=== PATIENT | female | born 1980 | race Caucasian/White ===

== ENCOUNTER 2019-11-25 10:31 | Outpatient (REF) | payer BC, SELFPAY | END 2019-11-25 10:32 | disposition home or self-care (01) | LOC: HO.HMGCLDS 10:31 | PROVIDERS: PCP Internal Medicine; Visit Provider Internal Medicine | DX: Z20.828 Contact with and (suspected) exposure to other viral communicable diseases (principal) | CPT/HCPCS: 36415; 87635 ==

== ENCOUNTER 2020-08-28 15:59 | Outpatient (REF) | payer BC, OTHER, SELFPAY ==
--- NOTE | ~2020-08-28 | MM_ITS ---
EXAMINATION: MM SCREENING DIGITAL BREAST TOMOSYNTHESIS, BILATERAL CLINICAL INFORMATION: Screening. Asymptomatic. The lifetime risk of breast cancer based on the Tyrer-Cuzick Model is 22.6%. Additional annual screening with breast MRI may be of benefit in women with a Score of 20% or greater. COMPARISON: Mammography: 08/23/2019 and studies dating back to 05/04/2015 TECHNIQUE: Digital breast tomosynthesis is performed in both the craniocaudal and mediolateral oblique views along with computer-aided detection (CAD). Synthesized 2-D images are generated from the tomosynthesis. FINDINGS: The breasts are heterogeneously dense, which may obscure small masses (ACR BI-RADS breast composition Category c). There is a stable parenchymal pattern of the right breast without new abnormal dominant mass or suspicious grouping of microcalcifications. Within the upper outer aspect of the left breast approximately 5 cm from the nipple, there is a region of density for which additional films consisting of rolled craniocaudal views are suggested. MM/MM tomosynthesis screening BI IMPRESSION: Question left breast density upper outer aspect for further evaluation. ASSESSMENT: BI-RADS 0: Incomplete - Need Additional Imaging Evaluation. RECOMMENDATION: 1. Additional views of the left breast in rolled craniocaudal views. 2. Targeted ultrasound if warranted after review of the additional views. 3. Radiology department staff will contact the patient for additional imaging. This patient's information was entered into a reminder system with a target due date for their next mammogram.
== END 2020-08-28 16:00 | disposition home or self-care (01) ==
LOC: HO.MAMMO 15:59
PROVIDERS: PCP Internal Medicine; Visit Provider Internal Medicine
DX: Z12.31 Encounter for screening mammogram for malignant neoplasm of breast (principal)
CPT/HCPCS: 77063; 77067

== ENCOUNTER 2020-09-04 08:01 | Outpatient (REF) | payer BC, SELFPAY ==
--- NOTE | ~2020-09-04 | MM_ITS ---
EXAMINATION: MM DIAGNOSTIC DIGITAL BREAST TOMOSYNTHESIS, LEFT US DIAGNOSTIC ULTRASOUND BREAST, LEFT CLINICAL INFORMATION: Recall from screening for question of asymmetric density upper outer left breast. TC 23%. COMPARISON: Mammography: 08/28/2020, 08/23/2019, 06/16/2018 TECHNIQUE: Digital breast tomosynthesis is performed. 2D images are generated from the tomosynthesis. The following views are obtained: 3-D rolled CC x2, 3-D spot CC, 3-D spot MLO, 3-D spot ML. Ultrasound left breast is targeted to the outer quadrant. Grayscale imaging and color Doppler are performed without and with harmonics. FINDINGS: The breasts are heterogeneously dense, which may obscure small masses (ACR BI-RADS breast composition Category c). The additional views show no persistent asymmetric density. There is no developing density from prior studies filled mass or architectural abnormality. Ultrasound demonstrates no cystic or solid mass or architectural abnormality. No focal duct ectasia. Results are discussed with the patient at time of visit. MM/MM tomosynthesis added views L IMPRESSION: Additional imaging shows no persistent asymmetric density. Unremarkable targeted left breast ultrasound. ASSESSMENT: BI-RADS 1: Negative RECOMMENDATION: Routine annual mammography screening. This patient's information was entered into a reminder system with a target due date for their next mammogram.
== END 2020-09-04 08:02 | disposition home or self-care (01) ==
LOC: HO.MAMMO 08:01
PROVIDERS: Visit Provider Internal Medicine
DX: R92.2 Inconclusive mammogram (principal)
CPT/HCPCS: 76642; 77061; 77065

== ENCOUNTER 2020-09-07 09:42 | Outpatient (REF) | payer BC, SELFPAY ==
--- NOTE | ~2020-09-07 | XR_ITS ---
EXAMINATION: XR CERVICAL SPINE CLINICAL INFORMATION: Cervical radiculopathy COMPARISON: None TECHNIQUE: 3 views of the cervical spine were obtained. FINDINGS: Bone alignment is normal. No fracture or dislocation seen. Disc spaces are normal. Soft tissues are normal. XR/XR cervical spine 3V IMPRESSION: Unremarkable examination.
== END 2020-09-07 09:43 | disposition home or self-care (01) ==
LOC: HO.HMGCX 09:42
PROVIDERS: PCP Internal Medicine; Visit Provider Internal Medicine
DX: M54.12 Radiculopathy, cervical region (principal)
CPT/HCPCS: 72040

== ENCOUNTER 2020-09-10 06:44 | Outpatient (REF) | payer BC, SELFPAY ==
[2020-09-10 11:27] LABS: MANUAL DIFF FLAG NO
[2020-09-10 11:42] LABS: Basophils Percent Auto 0.1 % (0-2); Eosinophils Absolute Auto 0.1 X10*3/uL (0.0-0.4); Eosinophils Percent Auto 0.9 % (0-4); Hematocrit 39.4 % (37-47); Hemoglobin 13.1 g/dl (12.0-16.0); Imm Gran Abs Auto 0.03 X10*3/uL (0.00-0.03); Imm Gran Pct Auto 0.4 % (0.0-0.4); Lymphocytes Absolute Auto 2.2 X10*3/uL (1.2-4.9); Lymphocytes Percent Auto 27.1 % (20-40); Mean Corpuscular HGB Conc 33.2 g/dl (31.0-35.0); Mean Corpuscular Hemoglobin 30.3 pg (27.0-33.0); Mean Platelet Volume 8.9 fL (9.4-12.3); Monocytes Absolute Auto 0.4 X10*3/uL (0.1-1.2); Monocytes Percent Auto 5.5 % (2-11); Neutrophils Absolute Auto 5.3 X10*3/uL (2.0-8.3); Platelet Count 297 X10*3/uL (160-400); Red Blood Count 4.33 X10*6/uL (4.20-5.50); Red Cell Distribution Width 12.8 % (11.0-16.0)
[2020-09-10 12:10] LABS: TSH reflex Free T4 0.92 uIU/mL (0.32-4.0)
[2020-09-10 12:25] LABS: Alanine Aminotransferase 11 U/L (0-31); Albumin Level 4.2 g/dL (3.5-5.0); Alkaline Phosphatase 50 U/L (39-117); Anion Gap 12 (12-20); Aspartate Amino Transferase 14 U/L (5-31); Bilirubin Total 0.5 mg/dL (0.0-1.0); Blood Urea Nitrogen 9 mg/dL (9-16); Calcium 8.5 mg/dL (8.4-10.2); Carbon Dioxide 28 mmol/L (22-29); Chloride 103 mmol/L (96-108); Cholesterol 177 mg/dL; Estimated Glomerular Filt Rate > 60; Glucose Fasting 84 mg/dL (60-99); HDL Cholesterol 58 mg/dL; LDL Cholesterol Calculated 81 mg/dl; Potassium 4.7 mmol/L (3.3-5.1); Sodium 138 mmol/L (135-145); Total Protein 6.8 g/dL (6.5-8.0); Triglycerides 192 mg/dL
== END 2020-09-10 06:45 | disposition home or self-care (01) ==
LOC: HO.HMGCLDS 06:44
PROVIDERS: PCP Internal Medicine; Visit Provider Internal Medicine
DX: Z00.01 Encounter for general adult medical examination with abnormal findings (principal); E66.09 Other obesity due to excess calories; M54.12 Radiculopathy, cervical region; R03.0 Elevated blood-pressure reading, without diagnosis of hypertension
CPT/HCPCS: 36415; 80053; 80061; 84443; 85025

== ENCOUNTER 2020-09-18 10:18 | Outpatient (REF) | payer BC, SELFPAY ==
--- NOTE | ~2020-09-18 | MR_ITS ---
EXAMINATION: MR CERVICAL SPINE WITHOUT CONTRAST CLINICAL INFORMATION: Cervical radiculopathy. Right arm pain, numbness, weakness, finger numbness. COMPARISON: Cervical spine radiographs dated 09/07/2020. TECHNIQUE: MRI of the cervical spine was obtained using routine sequences without contrast. FINDINGS: VERTEBRAL BODIES AND PARASPINAL SOFT TISSUES: Straightening of the normal cervical lordosis, which may be positional or related to muscular spasm. No acute fracture or subluxation. No loss of vertebral body height. Loss of intervertebral disc height with disc desiccation at C5-C6 and C6-C7. No abnormal marrow signal or evidence of acute osseous injury. No abnormal signal within the visualized cord. The visualized paraspinal soft tissues are unremarkable. CERVICOMEDULLARY JUNCTION AND VISUALIZED POSTERIOR FOSSA: Unremarkable. SPINAL LEVELS: C2-C3: Minimal posterior central disc protrusion which partially effaces the ventral thecal sac. No significant neural foraminal stenosis. C3-C4: Minimal posterior central disc protrusion which partially effaces the ventral thecal sac. No significant neural foraminal stenosis. C4-C5: Minimal posterior central disc protrusion which partially effaces the ventral thecal sac. No significant neural foraminal stenosis. C5-C6: Small posterior central disc protrusion which nearly-completely effaces the ventral thecal sac. No significant neural foraminal stenosis. C6-C7: Broad-based disc bulge with a prominent superimposed right paracentral/subarticular disc protrusion which completely effaces the ventral thecal sac and indents the adjacent cord. This causes severe right-sided neural foraminal stenosis. C7-T1: No significant disc bulge. No central canal or neural foraminal stenosis. MR/MR cervical spine wo con IMPRESSION: 1. Broad-based disc bulge at C6-C7 with a prominent superimposed right paracentral/subarticular disc protrusion which completely effaces the ventral thecal sac and indents the adjacent cord as well as causes severe right-sided neural foraminal stenosis. 2. Additional small multilevel disc protrusions without significant neural foraminal stenosis. 3. Straightening of the normal cervical lordosis, which may be positional or related to muscular spasm.
== END 2020-09-18 10:19 | disposition home or self-care (01) ==
LOC: HO.MRI 10:18
PROVIDERS: Visit Provider Internal Medicine
DX: M54.12 Radiculopathy, cervical region (principal); M79.609 Pain in unspecified limb; R20.2 Paresthesia of skin
CPT/HCPCS: 72141

== ENCOUNTER 2020-10-10 14:33 | Outpatient (REF) | payer BC, SELFPAY ==
[2020-10-12 16:22] LABS: HPV mRNA E6/E7 rflx Not Detected (Not Detected)
== END 2020-10-10 14:34 | disposition home or self-care (01) ==
LOC: HO.LAB 14:33
PROVIDERS: Visit Provider Advanced Practice Midwife
DX: Z01.411 Encounter for gynecological examination (general) (routine) with abnormal findings (principal); Z11.51 Encounter for screening for human papillomavirus (HPV); N92.6 Irregular menstruation, unspecified; Z72.0 Tobacco use; Z80.3 Family history of malignant neoplasm of breast
CPT/HCPCS: 87624; 88142

== ENCOUNTER 2020-12-27 06:00 | Outpatient (REF) | payer BC, SELFPAY ==
[2020-12-27 11:43] LABS: Appearance Urine HAZY; Color Urine YELLOW; Glucose Urine UA NEG (NEG); Leukocyte Esterase Urine NEG (NEG); Nitrite Urine NEG (NEG); Specific Gravity - Urine 1.015 (1.005-1.025); Urine Blood NEG (NEG); Urine Ketones NEG (NEG); Urine Protein NEG (NEG-TRACE)
== END 2020-12-27 06:01 | disposition home or self-care (01) ==
LOC: HO.HMGCLDS 06:00
PROVIDERS: PCP Internal Medicine; Visit Provider Internal Medicine
DX: R30.0 Dysuria (principal)
CPT/HCPCS: 81003

== ENCOUNTER 2021-08-30 08:11 | Outpatient (REF) | payer BC, SELFPAY ==
--- NOTE | ~2021-08-30 | MM_ITS ---
EXAMINATION: MM SCREENING DIGITAL BREAST TOMOSYNTHESIS, BILATERAL CLINICAL INFORMATION: Screening. Asymptomatic. The lifetime risk of breast cancer based on the Tyrer-Cuzick Model is 22%. COMPARISON: Mammography: 09/04/2020, 08/28/2020, 08/23/2019, 06/16/2018, 06/01/2018 TECHNIQUE: Digital breast tomosynthesis is performed in both the craniocaudal and mediolateral oblique views along with computer-aided detection (CAD). Synthesized 2D images are generated from the tomosynthesis. FINDINGS: The breasts are heterogeneously dense, which may obscure small masses (ACR BI-RADS breast composition Category c). There are no significant masses, abnormal calcifications, or other abnormalities. Parenchymal pattern is similar to prior studies. No significant changes. MM/MM tomosynthesis screening BI IMPRESSION: No mammographic evidence of malignancy. ASSESSMENT: BI-RADS 1: Negative RECOMMENDATION: Routine annual mammography screening. This patient's information was entered into a reminder system with a target due date for their next mammogram.
== END 2021-08-30 08:12 | disposition home or self-care (01) ==
LOC: HO.MAMMO 08:11
PROVIDERS: Visit Provider Internal Medicine
DX: Z12.31 Encounter for screening mammogram for malignant neoplasm of breast (principal)
CPT/HCPCS: 77063; 77067

== ENCOUNTER 2022-01-07 06:02 | Outpatient (REF) | payer BC, SELFPAY ==
[2022-01-07 11:37] LABS: MANUAL DIFF FLAG NO
[2022-01-07 11:53] LABS: Basophils Percent Auto 0.4 % (0-2); Eosinophils Absolute Auto 0.1 X10*3/uL (0.0-0.4); Eosinophils Percent Auto 1.3 % (0-4); Hematocrit 37.5 % (37.0-47.0); Hemoglobin 12.5 g/dl (12.0-16.0); Imm Gran Abs Auto 0.04 X10*3/uL (0.00-0.03); Imm Gran Pct Auto 0.8 % (0.0-0.4); Lymphocytes Absolute Auto 1.7 X10*3/uL (1.2-4.9); Lymphocytes Percent Auto 32.3 % (20-40); Mean Corpuscular HGB Conc 33.3 g/dl (31.0-35.0); Mean Corpuscular Hemoglobin 30.4 pg (27.0-33.0); Mean Corpuscular Volume 91.2 fL (80.0-98.0); Mean Platelet Volume 8.9 fL (9.4-12.3); Monocytes Absolute Auto 0.4 X10*3/uL (0.1-1.2); Monocytes Percent Auto 7.8 % (2-11); Neutrophils Percent Auto 57.4 % (45-73); Platelet Count 265 X10*3/uL (160-400); Red Blood Count 4.11 X10*6/uL (4.20-5.50); White Blood Count 5.3 X10*3/uL (4.8-10.8)
[2022-01-07 12:16] LABS: TSH reflex Free T4 0.93 uIU/mL (0.32-4.0)
[2022-01-07 12:19] LABS: Alanine Aminotransferase 12 U/L (0-31); Albumin Level 4.3 g/dL (3.5-5.0); Alkaline Phosphatase 60 U/L (39-117); Anion Gap 13 (12-20); Aspartate Amino Transferase 16 U/L (5-31); Bilirubin Total 0.4 mg/dL (0.0-1.0); Blood Urea Nitrogen 9 mg/dL (9-16); Carbon Dioxide 27 mmol/L (22-29); Chloride 103 mmol/L (96-108); Cholesterol 212 mg/dL; Estimated Glomerular Filt Rate > 60; Glucose Fasting 87 mg/dL (60-99); HDL Cholesterol 76 mg/dL; LDL Cholesterol Calculated 114 mg/dl; Sodium 139 mmol/L (135-145); Total Protein 7.1 g/dL (6.5-8.0); Triglycerides 111 mg/dL
[2022-01-11 14:07] LABS: Vitamin D 25-OH, D2 <4 ng/mL; Vitamin D 25-OH, D3 19 ng/mL; Vitamin D 25-OH, Total 19 ng/mL (30-100)
== END 2022-01-07 06:03 | disposition home or self-care (01) ==
LOC: HO.HMGCLDS 06:02
PROVIDERS: PCP Internal Medicine; Visit Provider Internal Medicine
DX: Z00.01 Encounter for general adult medical examination with abnormal findings (principal); E55.9 Vitamin D deficiency, unspecified; E66.09 Other obesity due to excess calories; R03.0 Elevated blood-pressure reading, without diagnosis of hypertension
CPT/HCPCS: 36415; 80053; 80061; 82306; 84443; 85025

== ENCOUNTER → 2022-02-26 12:48 | Outpatient (BNVA) | payer BC, SELFPAY | PROVIDERS: PCP Internal Medicine; Visit Provider Advanced Practice Midwife | DX: Z01.419 Encounter for gynecological examination (general) (routine) without abnormal findings (principal) ==

== ENCOUNTER 2022-06-24 10:13 | Outpatient (REF) | payer BC, SELFPAY ==
--- NOTE | ~2022-06-24 | XR_ITS ---
EXAMINATION: XR ANKLE, RIGHT CLINICAL INFORMATION: Pain COMPARISON: None available. TECHNIQUE: AP, lateral, and mortise views of the right ankle. FINDINGS: The bones and soft tissues are normal. No fracture. Alignment is anatomic. Joint spaces are maintained. No joint effusion. XR/XR ankle RT min 3V IMPRESSION: Normal right ankle.
== END 2022-06-24 10:14 | disposition home or self-care (01) ==
LOC: HO.HOSX 10:13
PROVIDERS: Visit Provider Physician Assistant
DX: S93.401A Sprain of unspecified ligament of right ankle, initial encounter (principal)
CPT/HCPCS: 73610

== ENCOUNTER 2022-07-04 11:06 | Outpatient (REF) | payer BC, SELFPAY ==
--- NOTE | ~2022-07-04 | MR_ITS ---
EXAMINATION: MR ANKLE WITHOUT CONTRAST, RIGHT CLINICAL INFORMATION: Medial right ankle pain and pressure following a fall on 04/11/2022. COMPARISON: Right ankle radiographs dated 06/24/2022. TECHNIQUE: Multisequence MR imaging of the right ankle was obtained without contrast on a high-field strength scanner. FINDINGS: BONE AND ARTICULAR CARTILAGE: Marrow edema within the lateral malleolus with focal periosteal elevation at the inferolateral aspect (coronal image 17/30), which is likely reactive to adjacent ligament pathology and indicates a periosteal avulsion injury. Patchy marrow edema throughout the talus, most prominent medially and likely reactive to the deltoid ligament pathology. No fracture line. Degenerative cystic change at the angle of [place]. No talar osteochondral lesion. Intact articular cartilage. No concerning lytic or blastic osseous lesion. ACHILLES TENDON: Minimally increased T2 signal within the distal Achilles tendon, consistent with minimal chronic tendinosis. No measurable tendon tear or tendon retraction. OTHER TENDONS: Trace fluid within the posterior tibialis tendon sheath, consistent with mild tenosynovitis. No transverse tendon tear or tendon retraction. LIGAMENTS: Full-thickness partial tear through the deltoid ligament, most prominent posteriorly with adjacent soft tissue edema. Diffuse thickening and edema of the anterior talofibular, posterior talofibular, and deltoid ligaments, consistent with acute grade 2 sprain/partial tears. Adjacent soft tissue edema. JOINT FLUID AND SOFT TISSUES: [id number] tibiotalar and small posterior subtalar joint effusions. PLANTAR FASCIA: Intact. SINUS TARSI AND TARSAL TUNNEL: Patent. MR/MR ankle RT wo con IMPRESSION: 1. Acute grade 2 sprain/partial tears of the anterior talofibular, posterior talofibular, calcaneofibular, and deltoid ligaments with adjacent soft tissue edema. Focal periosteal elevation at the inferolateral aspect of the lateral malleolus, consistent with a periosteal avulsion injury. Reactive marrow edema within the adjacent lateral malleolus and medial aspect of the talus. 2. [id number] tibiotalar and small posterior subtalar joint effusions. 3. Minimal chronic Achilles tendinosis without a measurable tendon tear or tendon retraction. 4. Mild posterior tibialis tenosynovitis without a measurable tendon tear.
== END 2022-07-04 11:07 | disposition home or self-care (01) ==
LOC: HO.MRI 11:06
PROVIDERS: PCP Internal Medicine; Visit Provider Physician Assistant
DX: S93.401D Sprain of unspecified ligament of right ankle, subsequent encounter (principal)
CPT/HCPCS: 73721

== ENCOUNTER → 2022-07-08 10:31 | Outpatient (BNVA) | payer BC, SELFPAY | PROVIDERS: PCP Internal Medicine; Visit Provider Physician Assistant ==

== ENCOUNTER → 2022-08-14 13:23 | Outpatient (BNVA) | payer BC, SELFPAY | PROVIDERS: PCP Internal Medicine; Visit Provider Physician Assistant ==

== ENCOUNTER 2022-09-05 07:30 | Outpatient (REF) | payer BC, SELFPAY ==
--- NOTE | ~2022-09-05 | MM_ITS ---
EXAMINATION: MM SCREENING DIGITAL BREAST TOMOSYNTHESIS, BILATERAL CLINICAL INFORMATION: Screening. Asymptomatic. The lifetime risk of breast cancer based on the Tyrer-Cuzick Model is 22.6%. COMPARISON: Mammography: This study is compared with prior exams dating back to 2017. TECHNIQUE: Digital breast tomosynthesis is performed in both the craniocaudal and mediolateral oblique views along with computer-aided detection (CAD). Synthesized 2D images are generated from the tomosynthesis. FINDINGS: There are scattered areas of fibroglandular density (ACR BI-RADS breast composition Category b). There are no significant masses, abnormal calcifications, or other abnormalities. MM/MM tomosynthesis screening BI IMPRESSION: No mammographic evidence of malignancy. ASSESSMENT: BI-RADS BI-RADS 1 - Negative RECOMMENDATION: Routine annual mammography screening. Please note that the patient's lifetime risk of breast cancers 22.6% places her at high risk category. If adjunct to annual screening breast MRI has not already been performed, is recommended. 1 year F/U This examination should not preclude the clinical evaluation of a suspicious palpable abnormality. This patient's information was entered into a reminder system with a target due date for their next mammogram.
== END 2022-09-05 07:31 | disposition home or self-care (01) ==
LOC: HO.MAMMO 07:30
PROVIDERS: PCP Internal Medicine; Visit Provider Internal Medicine
DX: Z12.31 Encounter for screening mammogram for malignant neoplasm of breast (principal)
CPT/HCPCS: 77063; 77067

== ENCOUNTER → 2022-09-05 07:30 | Outpatient (BNV) | payer BC, SELFPAY | PROVIDERS: PCP Internal Medicine; Visit Provider Radiology Diagnostic Radiology | DX: Z12.31 Encounter for screening mammogram for malignant neoplasm of breast (principal) | CPT/HCPCS: 77063; 77067 ==

== ENCOUNTER 2022-09-12 08:20 | Outpatient (AMB) | payer BC, SELFPAY ==
[2022-09-12 08:24] VITALS: BP 136/84; PULSE 89; O2SAT 98; BMI 32.4
--- NOTE | 2022-09-12 08:24 | MHC.PC.OV ---
Vital Signs 09/12/22 08:24 Height 5 ft 2 in Weight 177 lb BMI 32.4 BP 136/84 Blood Pressure Location Rt brachial Position Sitting Pulse 89 Pulse Source Pulse Oximeter Pulse Oximetry (%) 98 Oxygen Delivery Method Room Air Intake Visit Reasons: PE Allergies amoxicillin [AMOXICILLIN] Allergy (Unknown, Verified 09/12/22 08:26) Nausea and Vomiting, GI upset bee pollen [BEE STINGS] Allergy (Unknown, Verified 09/12/22 08:26) Shortness of Breath, swelling codeine [CODEINE] Allergy (Unknown, Verified 09/12/22 08:26) Tachycardia erythromycin base [ERYTHROMYCIN BASE] Allergy (Unknown, Verified 09/12/22 08:26) Fever, Increased urination penicillin V Allergy (Unknown, Verified 09/12/22 08:26) increased urination, fever Penicillins [PENICILLINS] Allergy (Unknown, Verified 09/12/22 08:26) Fever Medication List - Last Reconciled 09/12/22 by Haleigh Watts MD acetaminophen (Tylenol Extra Strength) 1,000 mg PO Q6H PRN [Blood pressure monitor As directed] cetirizine (Zyrtec) 10 mg PO DAILY PRN cholecalciferol (vitamin D3) PO .daily hydrocortisone 2.5% 1 appl topical BID PRN multivitamin 1 tab PO DAILY valacyclovir 500 mg PO DAILY 30 days Tobacco use date assessed: 09/12/22 Dental Screening Dental Screen Date: 09/12/22 Did you have a dental visit in the last 12 months?: Yes Did you have a dental problem in the last 6 months where you did not have access to dental care?: No Was dental information given to patient?: No HPI PE HPI Details Patient is a 42-year-old female came in for physical examination OBGYN visit up-to-date, last visit was February of this year Patient's brain right ankle in March she is under care of grievance and appeals specialist and is still having difficulty running. When she fell because of a not even pavement she also had trauma to right ring fingertip and now it is numb She has gained weight since last month BMI is 32.4 patient is trying to lose weight. She is taking vitamin-D supplement Valacyclovir as a prevention for her peace Lab order placed to be done fasting Follow-up 1 year physical exam [facility] Medical History BRCA negative Loss of sense of smell Recurrent cold sores Respiratory tract infection due to COVID-19 virus Family History Paternal Grandmother History of breast cancer Maternal Aunt History of breast cancer Paternal Aunt History of breast cancer Father Hypertension Mother Hypertension Sister Hypertension Other Mental health disorder Substance use disorder Social History Housing: House Alcohol intake: current Alcohol intake frequency: a few times a month Patient Tobacco Use Status: Former Tobacco user Tobacco use type: Cigarette e-Cigarette/Vaping Use: Never Used Current occupational status: employed 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 How often do you have a drink containing alcohol?: 2-4 times a month 2. How many drinks containing alcohol do you have on a typical day when you are drinking?: 1 or 2 3. How often do you have six or more drinks on one occasion?: Never Total Score: 2 Score Reviewed/Action Taken: Yes Review of Systems Const Denies chills, Denies fever(s) and Denies headache(s) Eyes Denies blurry vision ENT Denies headache(s), Denies nasal discharge, Denies nasal obstruction, Denies odynophagia and Denies sinus pain Card Denies chest pain at rest and Denies chest pain with activity Resp Denies cough and Denies hemoptysis GI Denies diarrhea, Denies odynophagia, Denies vomiting and Denies hematemesis Reports as per HPI Musc Denies abnormal gait Skin/Breast Reports as per HPI Neuro Denies Neuro-related abnormal movements, Denies Abnormal speech present, Denies abnormal gait, Denies headache(s) and Denies Sensory deficit (Neuro) Psych Denies mood swings and Denies paranoia Endo Reports as per HPI Ruben/Lymph Reports as per HPI Aller/Immun Reports as per HPI Physical exam (Primary Care) Vital Signs: Last Vital Signs Pulse 89 09/12/22 08:24 BP 136/84 09/12/22 08:24 Pulse Ox 98 09/12/22 08:24 Oxygen Delivery Method Room Air 09/12/22 08:24 BMI result Body Mass Index 32.4 Tobacco/Smoking Status: Tobacco use Status Tobacco use date assessed 09/12/22 09/12/22 08:26 Patient Tobacco Use Status Former Tobacco user 09/12/22 08:26 Tobacco use type Cigarette 09/12/22 08:26 e-Cigarette/Vaping Use Never Used 09/12/22 08:26 Thrive Assessment: Date of Thrive Assessment Date Thrive assessed 09/07/20 09/12/22 08:26 Const General: cooperative, comfortable and no acute distress Orientation/consciousness: patient oriented x3 HENMT Head: Yes normocephalic and Yes atraumatic Eyes General: appearance normal, both eyes and all related structures Pupils: Equal, round and reactive pupils present EOM: EOMs intact bilaterally Neck Neck: Yes supple and No lymphadenopathy Thyroid: Thyroid normal Lymphatic: no lymphadenopathy noted Resp Effort & Inspection: normal respiratory effort and able to speak in complete sentences Auscultation: clear to auscultation bilaterally Cardio Heart sounds: S1 normal heart sound present and S2 normal heart sound present GI Palpation (GI): Soft to palpation and nontender Auscultation: normal bowel sounds General: Yes no CVA tenderness Back/Spine/Pelvis Back: no CVA tenderness Skin General skin exam: elasticity normal and turgor normal Neuro General: patient oriented x3 and gait normal Cranial nerves: Yes Equal, round and reactive pupils present Speech: No Abnormal speech present Sensory Exam: No Sensory deficit (Neuro) Coordination: tandem gait normal and Romberg test negative Extrem General: Yes normal exam except as noted and No edema Assessment and Plan Assessment & Plan (1) Encounter for general adult medical examination with abnormal findings: Code(s): Z00.01 - Encounter for general adult medical examination with abnormal findings (2) Ankle pain, right: Code(s): M25.571 - Pain in right ankle and joints of right foot (3) Paresthesia of finger: Comment: Right ring finger tip after trauma secondary to fall March 2022 Code(s): R20.2 - Paresthesia of skin (4) Vitamin D deficiency: Code(s): E55.9 - Vitamin D deficiency, unspecified (5) Recurrent cold sores: Code(s): B00.1 - Herpesviral vesicular dermatitis Plan Patient is a 42-year-old female came in for physical examination OBGYN visit up-to-date, last visit was February of this year Patient's brain right ankle in March she is under care of grievance and appeals specialist and is still having difficulty running. When she fell because of a not even pavement she also had trauma to right ring fingertip and now it is numb She has gained weight since last month BMI is 32.4 patient is trying to lose weight. She is taking vitamin-D supplement Valacyclovir as a prevention for her peace Lab order placed to be done fasting Follow-up 1 year physical exam Orders: Orders Comprehensive [place]. Panel Fast Today E55.9 - Vitamin D deficiency, unspecified, M25.571 - Pain in right ankle and joints of right foot, R20.2 - Paresthesia of skin, Z00.01 - Encounter for general adult medical examination with abnormal findings Lipid Panel Today E55.9 - Vitamin D deficiency, unspecified, M25.571 - Pain in right ankle and joints of right foot, R20.2 - Paresthesia of skin, Z00.01 - Encounter for general adult medical examination with abnormal findings Vitamin D 25-OH (D2 and D3) Today E55.9 - Vitamin D deficiency, unspecified, M25.571 - Pain in right ankle and joints of right foot, R20.2 - Paresthesia of skin, Z00.01 - Encounter for general adult medical examination with abnormal findings Complete Blood Count Auto Diff Today E55.9 - Vitamin D deficiency, unspecified, M25.571 - Pain in right ankle and joints of right foot, R20.2 - Paresthesia of skin, Z00.01 - Encounter for general adult medical examination with abnormal findings Coding Level of Care Code Est Pt Prev Care 40-64y(96250) Diagnoses Encounter for general adult medical examination with abnormal findings Z00.01 Ankle pain, right M25.571 Paresthesia of finger R20.2 Vitamin D deficiency E55.9 Recurrent cold sores B00.1
== END 2022-09-12 10:05 | disposition home or self-care (01) ==
PROVIDERS: Visit Provider Internal Medicine
DX: Z00.01 Encounter for general adult medical examination with abnormal findings (principal); M25.571 Pain in right ankle and joints of right foot; R20.2 Paresthesia of skin; E55.9 Vitamin D deficiency, unspecified; B00.1 Herpesviral vesicular dermatitis
CPT/HCPCS: 99396

== ENCOUNTER 2022-09-12 08:45 | Outpatient (REF) | payer BC, SELFPAY ==
[2022-09-12 11:22] LABS: MANUAL DIFF FLAG NO
[2022-09-12 12:46] LABS: Basophils Absolute Auto 0.1 X10*3/uL (0.0-0.2); Basophils Percent Auto 0.7 % (0-2); Eosinophils Absolute Auto 0.1 X10*3/uL (0.0-0.4); Hematocrit 39.8 % (37.0-47.0); Hemoglobin 13.2 g/dl (12.0-16.0); Imm Gran Abs Auto 0.02 X10*3/uL (0.00-0.03); Imm Gran Pct Auto 0.3 % (0.0-0.4); Lymphocytes Absolute Auto 1.9 X10*3/uL (1.2-4.9); Lymphocytes Percent Auto 27.1 % (20-40); Mean Corpuscular HGB Conc 33.2 g/dl (31.0-35.0); Mean Corpuscular Hemoglobin 30.6 pg (27.0-33.0); Mean Corpuscular Volume 92.3 fL (80.0-98.0); Mean Platelet Volume 8.9 fL (9.4-12.3); Monocytes Absolute Auto 0.5 X10*3/uL (0.1-1.2); Monocytes Percent Auto 6.7 % (2-11); Neutrophils Absolute Auto 4.5 x10*3/uL (2.0-8.3); Neutrophils Percent Auto 64.2 % (45-73); Platelet Count 266 X10*3/uL (160-400); Red Blood Count 4.31 X10*6/uL (4.20-5.50); Red Cell Distribution Width 12.7 % (11.0-16.0); White Blood Count 7.1 X10*3/uL (4.8-10.8)
[2022-09-12 13:31] LABS: Alanine Aminotransferase 11 U/L (0-31); Albumin Level 4.4 g/dL (3.5-5.0); Alkaline Phosphatase 64 U/L (39-117); Anion Gap 11 (12-20); Aspartate Amino Transferase 19 U/L (5-31); Bilirubin Total 0.4 mg/dL (0.0-1.0); Blood Urea Nitrogen 12 mg/dL (9-16); Calcium 9.3 mg/dL (8.4-10.2); Carbon Dioxide 26 mmol/L (22-29); Chloride 104 mmol/L (96-108); Cholesterol 201 mg/dL; Estimated Glomerular Filt Rate > 60; Glucose Fasting 89 mg/dL (60-99); HDL Cholesterol 70 mg/dL; LDL Cholesterol Calculated 106 mg/dl; Potassium 4.2 mmol/L (3.3-5.1); Sodium 137 mmol/L (135-145); Total Protein 7.4 g/dL (6.5-8.0); Triglycerides 126 mg/dL
[2022-09-18 12:48] LABS: Vitamin D 25-OH, D2 <4 ng/mL; Vitamin D 25-OH, D3 27 ng/mL; Vitamin D 25-OH, Total 27 ng/mL (30-100)
== END 2022-09-12 08:46 | disposition home or self-care (01) ==
LOC: HO.HMGCLDS 08:45
PROVIDERS: PCP Internal Medicine; Visit Provider Internal Medicine
DX: Z00.01 Encounter for general adult medical examination with abnormal findings (principal); R20.2 Paresthesia of skin; M25.571 Pain in right ankle and joints of right foot; E55.9 Vitamin D deficiency, unspecified
CPT/HCPCS: 36415; 80053; 80061; 82306; 85025

== ENCOUNTER 2022-09-16 11:24 | Outpatient (AMB) | payer BC, SELFPAY ==
[2022-09-16 11:29] VITALS: BMI 32.4
--- NOTE | 2022-09-16 11:29 | MHC.OFFVIS ---
Intake Vital Signs 09/16/22 11:29 Height 5 ft 2 in Weight 177 lb BMI 32.4 Intake Visit Reasons: OV - right ankle sprain Intake Note: Alia is a 42 year old female who presents today for a follow up for her right ankle pain, DOI 04/11/22. Patient reports still having ongoing pain when she is doing her home exercises. She would like something that could help with her soreness/achy feeling. Allergies amoxicillin [AMOXICILLIN] Allergy (Unknown, Verified 09/16/22 11:30) Nausea and Vomiting, GI upset bee pollen [BEE STINGS] Allergy (Unknown, Verified 09/16/22 11:30) Shortness of Breath, swelling codeine [CODEINE] Allergy (Unknown, Verified 09/16/22 11:30) Tachycardia erythromycin base [ERYTHROMYCIN BASE] Allergy (Unknown, Verified 09/16/22 11:30) Fever, Increased urination penicillin V Allergy (Unknown, Verified 09/16/22 11:30) increased urination, fever Penicillins [PENICILLINS] Allergy (Unknown, Verified 09/16/22 11:30) Fever HPI OV - right ankle sprain HPI Details 42-year-old female who presents in the office today for a follow up of right ankle sprain, which occurred on 04/11/2022. She confirms having ongoing pain when working on the at home exercises. She would like to discuss something to aid with the soreness and achy feeling. [facility] Medical History BRCA negative Loss of sense of smell Recurrent cold sores Respiratory tract infection due to COVID-19 virus Family History Paternal Grandmother History of breast cancer Maternal Aunt History of breast cancer Paternal Aunt History of breast cancer Father Hypertension Mother Hypertension Sister Hypertension Other Mental health disorder Substance use disorder Social History Housing: House Alcohol intake: current Alcohol intake frequency: a few times a month Patient Tobacco Use Status: Former Tobacco user Tobacco use type: Cigarette e-Cigarette/Vaping Use: Never Used Current occupational status: employed 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 Current occupational exposures/hazards: No Sexual orientation: Lesbian/[place]/Homosexual Gender identity: Female Cognitive needs: No Hearing needs: No Vision needs: No Female Reproductive History Menstrual Age of Menarche: 10 Review of Systems Const All systems reviewed & are unremarkable except as noted in HPI and below Physical Exam Vital Signs: BMI result Body Mass Index 32.4 Const General: cooperative and no acute distress Orientation/consciousness: patient oriented x3 Resp Effort & Inspection: normal respiratory effort and able to speak in complete sentences Cardio Peripheral pulses: Peripheral pulses 2+ throughout Neuro General: patient oriented x3 Extrem Other: Right ankle: Normal to inspection. No ecchymosis or edema. Able to performed full ankle ROM with dorsiflex, plantarflex, supination, and pronation with out pain. Psych Mental Status: mental status grossly normal Assessment & Plan Assessment & Plan (1) Grade 3 ankle sprain: Code(s): S93.409A - Sprain of unspecified ligament of unspecified ankle, initial encounter Plan Ms. Greer is a 42-year-old female who presents in the office today for a follow up of right ankle sprain, which occurred on 04/11/2022. She confirms having ongoing pain when working on the at home exercises. She would like to discuss something to aid with the soreness and achy feeling. The patient may return to normal activities as tolerated. She may also being light jogging. Which she did attempt to do, however, she had to stop due to an increase in pain and limping. She followed the prior education and backed off to allow the ankle to rest. She will again attempt the light jog at a later date. She was again educated that her rule to follow with return to activities is she should have no pain and no limping. Follow up will be in 3 months at which time we will evaluate if she is able to perform the physical fitness test for the , or sooner if needed. Patient Instructions: Scribed for Leesa Erickson PA-C by Mckenzie Ruelas biomedical electronics technician, on 09/16/2022 at 11:27 am, EST. Your attestation Coding Level of Care Code Est Pt Level 3 (97826) Diagnoses Grade 3 ankle sprain S93.409A
== END 2022-09-16 11:54 | disposition home or self-care (01) ==
PROVIDERS: PCP Internal Medicine; Visit Provider Physician Assistant
DX: S93.401A Sprain of unspecified ligament of right ankle, initial encounter (principal)
CPT/HCPCS: 99213

== ENCOUNTER → 2022-09-16 11:24 | Outpatient (BNVA) | payer BC, SELFPAY | PROVIDERS: PCP Internal Medicine; Visit Provider Physician Assistant ==

== ENCOUNTER 2023-09-14 07:27 | Outpatient (REF) | payer OTHER, SELFPAY ==
--- NOTE | ~2023-09-14 | MM_ITS ---
EXAMINATION: MM SCREENING DIGITAL BREAST TOMOSYNTHESIS, BILATERAL CLINICAL INFORMATION: Screening. Asymptomatic. COMPARISON: Mammography: This study is compared with prior exams dating back to 2017. TECHNIQUE: Digital breast tomosynthesis is performed in both the craniocaudal and mediolateral oblique views along with computer-aided detection (CAD). Synthesized 2D images are generated from the tomosynthesis. FINDINGS: The breasts are heterogeneously dense, which may obscure small masses (ACR BI-RADS breast composition Category c). There are no significant masses, abnormal calcifications, or other abnormalities. Parenchymal pattern is stable bilaterally. MM/MM tomosynthesis screening BI IMPRESSION: No mammographic evidence of malignancy. ASSESSMENT: BI-RADS BI-RADS 1 - Negative RECOMMENDATION: Routine annual mammography screening. 1 year F/U This examination should not preclude the clinical evaluation of a suspicious palpable abnormality. This patient's information was entered into a reminder system with a target due date for their next mammogram.
== END 2023-09-14 07:28 | disposition home or self-care (01) ==
LOC: HO.MAMMO 07:27
PROVIDERS: PCP Internal Medicine; Visit Provider Internal Medicine
DX: Z12.31 Encounter for screening mammogram for malignant neoplasm of breast (principal)
CPT/HCPCS: 77063; 77067

== ENCOUNTER 2023-09-22 08:18 | Outpatient (AMB) | payer OTHER, SELFPAY ==
[2023-09-22 08:20] VITALS: BP 128/80; PULSE 88; O2SAT 98; BMI 31.3
--- NOTE | 2023-09-22 08:20 | MHC.PC.OV ---
Vital Signs 09/22/23 08:20 Height 5 ft 2 in Weight 171 lb 4 oz BMI 31.3 BP 128/80 Blood Pressure Location Lt brachial Position Sitting Pulse 88 Pulse Source Pulse Oximeter Pulse Oximetry (%) 98 Oxygen Delivery Method Room Air Intake Visit Reasons: PE Allergies amoxicillin [AMOXICILLIN] Allergy (Unknown, Verified 09/22/23 08:23) Nausea and Vomiting, GI upset bee pollen [BEE STINGS] Allergy (Unknown, Verified 09/22/23 08:23) Shortness of Breath, swelling codeine [CODEINE] Allergy (Unknown, Verified 09/22/23 08:23) Tachycardia erythromycin base [ERYTHROMYCIN BASE] Allergy (Unknown, Verified 09/22/23 08:23) Fever, Increased urination penicillin V Allergy (Unknown, Verified 09/22/23 08:23) increased urination, fever Penicillins [PENICILLINS] Allergy (Unknown, Verified 09/22/23 08:23) Fever Medication List - Last Reconciled 09/22/23 by Haleigh Watts MD acetaminophen (Tylenol Extra Strength) 1,000 mg PO Q6H PRN [Blood pressure monitor As directed] cetirizine (Zyrtec) 10 mg PO DAILY PRN cholecalciferol (vitamin D3) PO .daily hydrocortisone 2.5% 1 appl topical BID PRN multivitamin 1 tab PO DAILY valacyclovir 500 mg PO DAILY 30 days Tobacco use date assessed: 09/22/23 Dental Screening Dental Screen Date: 09/22/23 Did you have a dental visit in the last 12 months?: Yes Did you have a dental problem in the last 6 months where you did not have access to dental care?: No Was dental information given to patient?: Patient has dentist HPI PE HPI Details It is a 43-year-old female came in today for physical exam Patient is trying to lose weight, since last year she has been able to lose around 5 lb She is eating healthy Patient is taking vitamin-D supplement And valacyclovir 500 mg daily to avoid cold sores 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 remember some instances where 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 felt 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 She is having flashbacks now which is bothering her Patient says that she will talk to the base therapist about that She need a new referral to [facility] Medical History BRCA negative Loss of sense of smell Respiratory tract infection due to COVID-19 virus Recurrent cold sores Family History Paternal Grandmother History of breast cancer Maternal Aunt History of breast cancer Paternal Aunt History of breast cancer Father Hypertension Mother Hypertension Sister Hypertension Other Mental health disorder Substance use disorder Social History Housing: House Alcohol intake: current Alcohol intake frequency: a few times a month Patient Tobacco Use Status: Former Tobacco user Tobacco use type: Cigarette e-Cigarette/Vaping Use: Never Used Current occupational status: employed Current occupation: [employer] Current occupational exposures/hazards: No Sexual orientation: Lesbian/Livingston/Homosexual Gender identity: Female Cognitive needs: No Hearing needs: No Vision needs: No Female Reproductive History Menstrual Age of Menarche: 10 Questionnaire PHQ-9 Over the last 2 weeks, how often have you been bothered by any of the following problems? 1. Little interest or pleasure in doing things: not at all 2. Feeling down, depressed, or hopeless: not at all 3. Trouble falling or staying asleep, or sleeping too much: not at all 4. Feeling tired or having little energy: not at all 5. Poor appetite or overeating: not at all 6. Feeling bad about yourself - or that you are a failure or have let yourself or your family down: not at all 7. Trouble concentrating on things, such as reading the newspaper or watching television: not at all 8. Moving or speaking so slowly that other people could have noticed. Or the opposite - being so fidgety or restless that you have been moving around a lot more than usual: not at all 9. Thoughts that you would be better off or of hurting yourself in some way: not at all Total score: 0 Depression Screening Interpretation: Negative Depression Screening Done: Yes 80590 - PHQ-9 Billing: Yes Source: Developed by Drs. Hector Tran, Aleah Eastman, Tobias Collado and colleagues, with an educational lyudmila from [employer]. Thrive Questionnaire Date Thrive assessed: 09/22/23 I am a: Patient What is your living situation today?: I have a steady place to live Within the past 12 months, did the food you bought not last and you didn't have the money to get more?: Never true Within the past 12 months, did you worry whether your food would run out before you got money to buy more?: Never true Do you have trouble paying for medicines?: No Do you have trouble getting transportation to medical appointments?: No Do you have trouble paying your heating and electricity bill?: No Do you have trouble taking care of your child, family member or friend?: No Do you have trouble with day-to-day activities such as bathing, preparing meals, shopping, managing finances, etc.?: No Are you currently unemployed and looking for a job?: No Are you interested in more education?: No Please select the resources that you would like help with: Housing/Half-Way Currently or been in a relationship where the following occur: I choose not to answer THRIVE Score: 0 AUDIT C Alcohol Use Questionnaire (AUDIT-C) 1. How often do you have a drink containing alcohol?: 2-3 times a week 2. How many drinks containing alcohol do you have on a typical day when you are drinking?: 1 or 2 3. How often do you have six or more drinks on one occasion?: Never Total Score: 3 Score Reviewed/Action Taken: Yes CORDELIA-7 AMB Questionnaire CORDELIA-7 Date CORDELIA - 7 assessed: 09/22/23 Feeling nervous, anxious, or on edge: 1 = Several days Not being able to stop or control worryin = Not at all Worrying too much about different things: 0 = Not at all Trouble relaxin = Several days Being so restless that it is hard to sit still: 0 = Not at all Becoming easily annoyed or irritable: 0 = Not at all Feeling afraid as if something awful might happen: 0 = Not at all Total CORDELIA-7 score (0-4 normal; 5-9 mild; 10-14 moderate; 15-21 severe): 2 Source: Developed by Drs. Hector Tran, Aleah Eastman, Tobias Collado and colleagues, with an educational lyudmila from [employer] CORDEILA-7 Assessment Billing CORDELIA-7 Assessment Tool: CORDELIA-7 Assessment 09907 Review of Systems Const Denies chills, Denies fever(s) and Denies headache(s) Eyes Denies blurry vision ENT Denies headache(s), Denies nasal discharge, Denies nasal obstruction, Denies odynophagia and Denies sinus pain Card Denies chest pain at rest and Denies chest pain with activity Resp Denies cough and Denies hemoptysis GI Denies diarrhea, Denies odynophagia, Denies vomiting and Denies hematemesis Reports as per HPI Musc Denies abnormal gait Skin/Breast Reports as per HPI Neuro Denies Neuro-related abnormal movements, Denies Abnormal speech present, Denies abnormal gait, Denies headache(s) and Denies Sensory deficit (Neuro) Psych Denies mood swings and Denies paranoia Endo Reports as per HPI Ruben/Lymph Reports as per HPI Aller/Immun Reports as per HPI Physical exam (Primary Care) Vital Signs: Last Vital Signs Pulse 88 09/22/23 08:20 BP 128/80 09/22/23 08:20 Pulse Ox 98 09/22/23 08:20 Oxygen Delivery Method Room Air 09/22/23 08:20 BMI result Body Mass Index 31.3 Tobacco/Smoking Status: Tobacco use Status Tobacco use date assessed 09/22/23 09/22/23 08:24 Patient Tobacco Use Status Former Tobacco user 09/22/23 08:24 Tobacco use type Cigarette 09/22/23 08:24 e-Cigarette/Vaping Use Never Used 09/22/23 08:24 PHQ-9: PHQ-9 Score PHQ-9: Total score 0 09/22/23 08:53 Depression Screening Interpretation: Negative Thrive Assessment: Date of Thrive Assessment Date Thrive assessed 09/22/23 09/22/23 08:24 Currently or been in a relationship where the following occur: I choose not to answer Const General: cooperative, comfortable and no acute distress Orientation/consciousness: patient oriented x3 HENMT Head: Yes normocephalic and Yes atraumatic Eyes General: appearance normal, both eyes and all related structures Pupils: Equal, round and reactive pupils present EOM: EOMs intact bilaterally Neck Neck: Yes supple and No lymphadenopathy Thyroid: Thyroid normal Lymphatic: no lymphadenopathy noted Resp Effort & Inspection: normal respiratory effort and able to speak in complete sentences Auscultation: clear to auscultation bilaterally Cardio Heart sounds: S1 normal heart sound present and S2 normal heart sound present GI Palpation (GI): Soft to palpation and nontender Auscultation: normal bowel sounds General: Yes no CVA tenderness Back/Spine/Pelvis Back: no CVA tenderness Skin General skin exam: elasticity normal and turgor normal Neuro General: patient oriented x3 and gait normal Cranial nerves: Yes Equal, round and reactive pupils present Speech: No Abnormal speech present Sensory Exam: No Sensory deficit (Neuro) Coordination: tandem gait normal and Romberg test negative Extrem General: Yes normal exam except as noted and No edema Assessment and Plan Assessment & Plan (1) Encounter for general adult medical examination with abnormal findings: Code(s): Z00.01 - Encounter for general adult medical examination with abnormal findings (2) Recurrent cold sores: Code(s): B00.1 - Herpesviral vesicular dermatitis (3) Vitamin D deficiency: Code(s): E55.9 - Vitamin D deficiency, unspecified (4) PTSD (post-traumatic stress disorder): Code(s): F43.10 - Post-traumatic stress disorder, unspecified (5) Obesity due to excess calories: Code(s): E66.09 - Other obesity due to excess calories Qualifiers: Body mass index: BMI 30.0-30.9 Obesity classification: adult class 1 (BMI 30 - 34.9) Serious obesity comorbidity presence: without serious comorbidity Qualified Code(s): E66.09 - Other obesity due to excess calories; Z68.30 - Body mass index [BMI] 30.0-30.9, adult Plan It is a 43-year-old female came in today for physical exam Patient is trying to lose weight, since last year she has been able to lose around 5 lb She is eating healthy Patient is taking vitamin-D supplement And valacyclovir 500 mg daily to avoid cold sores 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 Panel Fast Today B00.1 - Herpesviral vesicular dermatitis, E55.9 - Vitamin D deficiency, unspecified, F43.10 - Post-traumatic stress disorder, unspecified, Z00.01 - Encounter for general adult medical examination with abnormal findings Lipid Panel Today B00.1 - Herpesviral vesicular dermatitis, E55.9 - Vitamin D deficiency, unspecified, F43.10 - Post-traumatic stress disorder, unspecified, Z00.01 - Encounter for general adult medical examination with abnormal findings Vitamin D 25-OH (D2 and D3) Today B00.1 - Herpesviral vesicular dermatitis, E55.9 - Vitamin D deficiency, unspecified, F43.10 - Post-traumatic stress disorder, unspecified, Z00.01 - Encounter for general adult medical examination with abnormal findings Referrals [employer] Referral Z01.419 - Encounter for gynecological examination (general) (routine) without abnormal findings Medications: New cetirizine (Zyrtec) 10 mg PO DAILY PRN 90 tabs 3RF allergy symptoms Changed From valacyclovir 500 mg PO DAILY 30 days 30 tabs 2RF To valacyclovir 500 mg PO DAILY 90 tabs 3RF 90 days Coding Level of Care Code Est Pt Level 3 (96169) Est Pt Prev Care 40-64y(73775) Diagnoses Encounter for general adult medical examination with abnormal findings Z00.01 Recurrent cold sores B00.1 Vitamin D deficiency E55.9 PTSD (post-traumatic stress disorder) F43.10 Class 1 obesity due to excess calories without serious comorbidity with body mass index (BMI) of 30.0 to 30.9 in adult E66.09; Z68.30 Body mass index: BMI 30.0-30.9 Obesity classification: adult class 1 (BMI 30 - 34.9) Serious obesity comorbidity presence: without serious comorbidity Additional Codes CORDELIA-7 Assessment Billing - CORDELIA-7 Assessment Tool: CORDELIA-7 Assessment 21305 ([id number])
== END 2023-09-22 08:51 | disposition home or self-care (01) ==
PROVIDERS: PCP Internal Medicine; Visit Provider Internal Medicine
DX: Z00.00 Encounter for general adult medical examination without abnormal findings (principal); B00.1 Herpesviral vesicular dermatitis; E55.9 Vitamin D deficiency, unspecified; Z68.30 Body mass index [BMI] 30.0-30.9, adult; E66.09 Other obesity due to excess calories; F43.10 Post-traumatic stress disorder, unspecified
CPT/HCPCS: 99213; 99396

== ENCOUNTER 2023-10-09 07:08 | Outpatient (REF) | payer OTHER, SELFPAY ==
[2023-10-09 09:58] LABS: MANUAL DIFF FLAG NO
[2023-10-09 10:07] LABS: Basophils Percent Auto 0.7 % (0-2); Eosinophils Absolute Auto 0.1 X10*3/uL (0.0-0.4); Eosinophils Percent Auto 1.6 % (0-4); Hematocrit 38.3 % (37.0-47.0); Hemoglobin 12.8 g/dl (12.0-16.0); Imm Gran Abs Auto 0.01 X10*3/uL (0.00-0.03); Imm Gran Pct Auto 0.2 % (0.0-0.4); Lymphocytes Absolute Auto 1.6 X10*3/uL (1.2-4.9); Lymphocytes Percent Auto 27.8 % (20-40); Mean Corpuscular HGB Conc 33.4 g/dl (31.0-35.0); Mean Corpuscular Hemoglobin 30.4 pg (27.0-33.0); Mean Platelet Volume 8.8 fL (9.4-12.3); Monocytes Absolute Auto 0.4 X10*3/uL (0.1-1.2); Neutrophils Absolute Auto 3.7 x10*3/uL (2.0-8.3); Neutrophils Percent Auto 63.7 % (45-73); Platelet Count 259 X10*3/uL (160-400); Red Blood Count 4.21 X10*6/uL (4.20-5.50); Red Cell Distribution Width 12.5 % (11.0-16.0); White Blood Count 5.8 X10*3/uL (4.8-10.8)
[2023-10-09 10:30] LABS: Alanine Aminotransferase 11 U/L (0-31); Albumin Level 4.2 g/dL (3.5-5.0); Alkaline Phosphatase 63 U/L (39-117); Anion Gap 10 (12-20); Aspartate Amino Transferase 14 U/L (5-31); Bilirubin Total 0.5 mg/dL (0.0-1.0); Blood Urea Nitrogen 11 mg/dL (9-16); Calcium 9.2 mg/dL (8.4-10.2); Carbon Dioxide 29 mmol/L (22-29); Chloride 107 mmol/L (96-108); Cholesterol 193 mg/dL (<200); Estimated Glomerular Filt Rate > 60; Glucose Fasting 101 mg/dL (60-99); HDL Cholesterol 68 mg/dL (>40); LDL Cholesterol Calculated 106 mg/dL (<100); Potassium 4.3 mmol/L (3.3-5.1); Sodium 142 mmol/L (135-145); Triglycerides 95 mg/dL (<150)
[2023-10-16 16:18] LABS: Vitamin D 25-OH, D2 <4 ng/mL; Vitamin D 25-OH, D3 25 ng/mL; Vitamin D 25-OH, Total 25 ng/mL (30-100)
== END 2023-10-09 07:09 | disposition home or self-care (01) ==
LOC: HO.HMGCLDS 07:08
PROVIDERS: PCP Internal Medicine; Visit Provider Internal Medicine
DX: Z00.01 Encounter for general adult medical examination with abnormal findings (principal); E55.9 Vitamin D deficiency, unspecified; B00.1 Herpesviral vesicular dermatitis; F43.10 Post-traumatic stress disorder, unspecified
CPT/HCPCS: 36415; 80053; 80061; 82306; 85025

== ENCOUNTER 2023-10-19 11:18 | Outpatient (REF) | payer OTHER, SELFPAY ==
[2023-10-21 11:13] LABS: HPV mRNA E6/E7 Not Detected (Not Detected)
== END 2023-10-19 11:19 | disposition home or self-care (01) ==
LOC: HO.LNP 11:18
PROVIDERS: PCP Internal Medicine; Visit Provider Advanced Practice Midwife
DX: Z01.419 Encounter for gynecological examination (general) (routine) without abnormal findings (principal)
CPT/HCPCS: 87624; 88175

== ENCOUNTER 2023-10-19 11:18 | Outpatient (AMB) | payer OTHER, SELFPAY ==
[2023-10-19 11:52] VITALS: BMI 31.5
--- NOTE | 2023-10-19 11:52 | MHC.OFFVIS ---
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 Piano Assembler Required: No Piano Assembler Services: Piano Assembler Present Information Interpreted: clinical only Supervisor Costuming: Supervisor Costuming Present Allergies amoxicillin [AMOXICILLIN] Allergy (Unknown, Verified 10/19/23 11:52) Nausea and Vomiting, GI upset bee pollen [BEE STINGS] Allergy (Unknown, Verified 10/19/23 11:52) Shortness of Breath, swelling codeine [CODEINE] Allergy (Unknown, Verified 10/19/23 11:52) Tachycardia erythromycin base [ERYTHROMYCIN BASE] Allergy (Unknown, Verified 10/19/23 11:52) Fever, Increased urination penicillin V Allergy (Unknown, Verified 10/19/23 11:52) increased urination, fever Penicillins [PENICILLINS] Allergy (Unknown, Verified 10/19/23 11:52) Fever Medication List - Last Reconciled 10/19/23 by Ning Lyn CNM acetaminophen (Tylenol Extra Strength) 1,000 mg PO Q6H PRN [Blood pressure monitor As directed] cetirizine (Zyrtec) 10 mg PO DAILY PRN cholecalciferol (vitamin D3) PO .daily hydrocortisone 2.5% 1 appl topical BID PRN multivitamin 1 tab PO DAILY valacyclovir 500 mg PO DAILY 90 days Is last menstrual period known: Yes Last menstrual period: 10/07/23 Do you need a note to return to daycare/school/sports/work: No HPI HPI CLINICAL PHARMACY COORDINATOR annual exam: Details: 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 She and her have been together for 17 years plus. Her partner has grown children. 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 She had some elevated blood pressures registered at office visits but they were under stressful conditions and she is doing her best to eat well and manage her weight and today's blood pressure was in within normal limits and she is very much hoping to not need medications. She stays physically active and she does singing. [facility] Medical History BRCA negative Loss of sense of smell Respiratory tract infection due to COVID-19 virus Recurrent cold sores Family History Paternal Grandmother History of breast cancer Maternal Aunt History of breast cancer Paternal Aunt History of breast cancer Father Hypertension Mother Hypertension Sister Hypertension Other Mental health disorder Substance use disorder Social History Housing: House Alcohol intake: current Alcohol intake frequency: a few times a month Patient Tobacco Use Status: Former Tobacco user Tobacco use type: Cigarette e-Cigarette/Vaping Use: Never Used Current occupational status: employed 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 Current occupational exposures/hazards: No Sexual orientation: Lesbian/[place]/Homosexual Gender identity: Female Cognitive needs: No Hearing needs: No Vision needs: No Female Reproductive History Menstrual Age of Menarche: 10 Duration of menses: 3-5 days Date of last menstrual period: 10/07/23 control method: none Total pregnancies: 0 Date of last pap smear: 10/11/20 (negative) History of abnormal pap smear: Yes ([id number].[id number]) Date of Mammogram: 10/12/23 (negative) History of abnormal mammogram: No Physical Exam Vital Signs: BMI result Body Mass Index 31.5 Const General: healthy appearing, comfortable, no acute distress, well developed and alert Nutritional Appearance: average body habitus Orientation/consciousness: patient oriented x3 Limitations: no limitations HEENT Head: Yes normocephalic Neck Neck: Yes normal visual inspection Chest Chest palpation & inspection: normal inspection of the chest Breast/axilla inspection: normal inspection of the breasts and normal inspection of the axillae Breast/axilla palpation: normal palpation of the breasts and normal palpation of the axillae Resp Effort & Inspection: normal respiratory effort GI Inspection: Yes normal to inspection, No Abdominal wall edema and No distended Palpation (GI): Soft to palpation and nontender Other: External exam completely within normal limits vagina pink and moist nulliparous cervix is pink smooth healthy with clear fertile type mucus coming from os cervix long close thick mobile nontender uterus midposition mobile nontender adnexa nontender very good tone Kegel. LMP was 12 days ago on 10/06. General: Yes bladder normal to palpation External Female Exam: normal external appearance and normal appearance of the urethra Speculum Exam - Vagina: normal appearance of the vagina, normal palpation and normal vaginal discharge Speculum Exam - Cervix: normal appearance of the cervix, normal palpation and nontender Bimanual exam- vagina & uterus: normal bimanual exam, normal palpation, uterine size normal, bladder normal to palpation, consistency normal, normal palpation, uterine mobility normal, uterine shape normal, No Cervical tenderness present, non-tender and no cervical motion tenderness Bimanual Exam- Adnexa, other: normal adnexae, no masses, normal and No adnexal tenderness Neuro General: patient oriented x3 Assessment & Plan Assessment & Plan (1) Well woman exam with routine gynecological exam: Code(s): Z01.419 - Encounter for gynecological examination (general) (routine) without abnormal findings Category: Medical (2) Cervical cancer screening: Comment: History of remote abnomal, Code(s): Z12.4 - Encounter for screening for malignant neoplasm of cervix Category: Medical (3) Breast cancer screening: Code(s): Z12.39 - Encounter for other screening for malignant neoplasm of breast Category: Medical Plan -----Discussed in this visit the following: healthy balanced diet, regular and consistent exercise, getting recommended health screens, doing the best she can for her particular health concerns, kegel exercises, pap smear screening and followup recommendations, mammography screening and SBE, normal changes in cycles in her life stage--- . Patient has remote history of abnormal Pap last Pap smears were normal Pap done today. She has no concerns about STIs as in monogamous relationship for years with her She jokes that they kept trying to have a baby but nothing worked but they are not interested in anything with that now as her partner's children are grown She is very healthy and active and is doing her best well and manage stress and avoid medications if she does not need them. She is up-to-date on her mammograms and had 1 done recently. Reviewed security guard annual exams and reasons to return if this Pap smear is normal her next 1 would be in 3-5 years if she has no need for other security guard issues if she is getting all of her needs met with her primary care provider then that can often be the most important thing as we get older reviewed some coming interactions with perimenopause. Reviewed that her physical exam and cervical mucus was evidence of ovulation currently. Coding Level of Care Code Est Pt Prev Care 40-64y(33920) Diagnoses Well woman exam with routine gynecological exam Z01.419 Cervical cancer screening Z12.4 Breast cancer screening Z12.39
== END 2023-10-19 12:31 | disposition home or self-care (01) ==
PROVIDERS: PCP Internal Medicine; Visit Provider Advanced Practice Midwife
DX: Z01.419 Encounter for gynecological examination (general) (routine) without abnormal findings (principal); Z12.4 Encounter for screening for malignant neoplasm of cervix; Z12.39 Encounter for other screening for malignant neoplasm of breast
CPT/HCPCS: 99396

== ENCOUNTER 2024-02-12 09:24 | Outpatient (AMB) | payer OTHER, SELFPAY ==
--- OUTSIDE RECORDS SUMMARY | 2024-02-12 09:26 | XMS_ITS | Continuity of Care Document ---
Author Name [facility] Organization [facility] Care Team Providers Care Solution Engineer Name Role Phone [facility] Unavailable Unavailable Problems Combined list of problems from Department of Defense and Veterans Affairs facilities. It does not include entries that were removed or entered in error. Problem Status Onset Date Problem Type Date of Resolution Comme nts Source plantar fasciitis Active Condition [facility] unspecified muscle strain Active Condition [facility] thigh strain Active Condition [facility] visit for: services physical accession Active Condition [facility] Allergies, Adverse Reactions, Alerts Combined list of allergies from Department of Defense and Veterans Affairs facilities. It does not include entries that were removed or entered in error. Substance Category Reaction Severity Reaction type Status Date Reported Comments Source codeine Propensity to adverse reactions to drug Unknown Active 0 [facility] CODEINE {Cla } Drug allergy (disorder) [facility] ERYTHROMYCIN Drug allergy (disorder) Unknown active 0 [place] [address] erythromycin Propensity to adverse reactions to drug Unknown Active rash [facility] PENICILLINS Drug allergy (disorder) Unknown active 0 [place] [address] penicillins Propensity to adverse reactions to drug Unknown Active rash [facility] Immunizations Combined list of available immunizations from the Department of Defense and Veterans Affairs facilities. Immunization Series Date Given Administered By Site Reaction Lot Number CVX Code Drug Snuff Grinder Status Comments Source influenza, injectable, quadrivalent- pf 2021 [id number] GlaxoSmithKli ne complet ed influenza , injectabl e, quadrival ent-pf 12/07/21 Given Ambulat ory Pharmac y influenza, injectable, quadrivalent- pf 2021 [id number] 150 GlaxoSmithKli ne complet ed influenza , injectabl e, quadrival ent-pf 12/07/21 Given Ambulat ory Pharmac y COVID Vaccine Pfizer 2020 [id number] PFIZER complet ed COVID Vaccine Pfizer 02/07/21 Given Ambulat ory Pharmac y COVID Vaccine Pfizer 2020 [id number] PFIZER complet ed COVID Vaccine Pfizer 02/07/21 Given Ambulat ory Pharmac y influenza, injectable, quadrivalent 2020 [id number] 158 GlaxoSmithKli ne complet ed influenza , injectabl e, quadrival ent 11/12/20 Given Ambulat ory Pharmac y influenza, injectable, quadrivalent 2020 [id number] 158 GlaxoSmithKli ne complet ed influenza , injectabl e, quadrival ent 11/12/20 Given Ambulat ory Pharmac y COVID Vaccine Moderna 2020 [id number] complet ed COVID Vaccine Moderna 04/29/20 Given Ambulat ory Pharmac y COVID Vaccine Moderna 2020 [id number] 207 complet ed COVID Vaccine Moderna 04/29/20 Given Ambulat ory Pharmac y COVID Vaccine Moderna 2020 [id number] 207 complet ed COVID Vaccine Moderna 03/31/20 Given Ambulat ory Pharmac y influenza, injectable, quadrivalent- pf 2019 [id number] 150 sanofi pasteur complet ed influenza , injectabl e, quadrival ent-pf 12/31/19 Given Ambulat ory Pharmac y influenza, injectable, quadrivalent- pf 2019 [id number] 150 sanofi pasteur complet ed influenza , injectabl e, quadrival ent-pf 12/31/19 Given Ambulat ory Pharmac y influenza, seasonal, injectable 2018 [id number] 141 Seqirus complet ed influenza , seasonal, injectabl e 12/29/18 Given Ambulat ory Pharmac y influenza, seasonal, injectable 2018 [id number] 141 Seqirus complet ed influenza , seasonal, injectabl e 12/29/18 Given Ambulat ory Pharmac y tetanus, diphtheria, acellular pertu is 2016 [id number] 115 sanofi pasteur complet ed tetanus, diphtheri a, acellular pertussis 10/23/16 Given Ambulat ory Pharmac y influenza, seasonal, injectable-pf 2016 [id number] 140 sanofi pasteur complet ed influenza , seasonal, injectabl e-pf 10/23/16 Given Ambulat ory Pharmac y influenza, seasonal, injectable-pf 2016 [id number] 140 sanofi pasteur complet ed influenza , seasonal, injectabl e-pf 10/23/16 Given Ambulat ory Pharmac y tetanus, diphtheria, acellular pertu is 2016 [id number] 115 sanofi pasteur complet ed tetanus, diphtheri a, acellular pertussis 10/23/16 Given Ambulat ory Pharmac y influenza, seasonal, injectable 2016 [id number] 141 Seqirus complet ed influenza , seasonal, injectabl e 03/01/16 Given Ambulat ory Pharmac y influenza, seasonal, injectable 2016 [id number] 141 Seqirus complet ed influenza , seasonal, injectabl e 03/01/16 Given Ambulat ory Pharmac y influenza, seasonal, injectable-pf 2014 [id number] 140 CSL Behring complet ed influenza , seasonal, injectabl e-pf 12/10/14 Given Ambulat ory Pharmac y influenza, seasonal, injectable-pf 2014 [id number] 140 CSL Behring complet ed influenza , seasonal, injectabl e-pf 12/10/14 Given Ambulat ory Pharmac y influenza, seasonal, injectable-pf 2013 [id number] 140 CSL Behring complet ed influenza , seasonal, injectabl e-pf 11/27/13 Given Ambulat ory Pharmac y influenza, seasonal, injectable-pf 2013 [id number] 140 CSL Behring complet ed influenza , seasonal, injectabl e-pf 11/27/13 Given Ambulat ory Pharmac y Influenza, injectable, MDCK-pf 2012 [id number] 153 Novartis Pharmaceutica ls complet ed Influenza , injectabl e, MDCK-pf 12/19/12 Given Ambulat ory Pharmac y Influenza, injectable, MDCK-pf 2012 [id number] 153 Novartis Pharmaceut[employer] ls complet ed Influenza , injectabl e, MDCK-pf 12/19/12 Given Ambulat ory Pharmac y influenza, seasonal, injectable-pf 2011 [id number] 140 CSL Behring complet ed influenza , seasonal, injectabl e-pf 12/21/11 Given Ambulat ory Pharmac y influenza, seasonal, injectable-pf 2011 [id number] 140 CSL Behring complet ed influenza , seasonal, injectabl e-pf 12/21/11 Given Ambulat ory Pharmac y influenza, seasonal, injectable-pf 2010 [id number] 140 CSL Behring complet ed influenza , seasonal, injectabl e-pf 01/12/11 Given Ambulat ory Pharmac y influenza, seasonal, injectable-pf 2010 [id number] [id number] 140 CSL Behring complet ed influenza , seasonal, injectabl e-pf 01/12/11 Given Ambulat ory Pharmac y hepatitis A-hepatitis B vaccine 2010 [id number] 4BA 104 GlaxoSmithKli ne complet ed hepatitis A-hepatit is B vaccine 03/02/10 Given Ambulat ory Pharmac y hepatitis A-hepatitis B vaccine 2010 [id number] 4BA 104 GlaxoSmithKli ne complet ed hepatitis A-hepatit is B vaccine 03/02/10 Given Ambulat ory Pharmac y hepatitis A-hepatitis B vaccine 2010 [id number] 4BA 104 GlaxoSmithKli ne complet ed hepatitis A-hepatit is B vaccine 03/02/10 Given Ambulat ory Pharmac y hepatitis A-hepatitis B vaccine 2010 [id number] 4BA 104 GlaxoSmithKli ne complet ed hepatitis A-hepatit is B vaccine 03/02/10 Given Ambulat ory Pharmac y influenza virus vaccine, live 2009 [id number] 111 Med[employer] Inc comple t ed influenza virus vaccine, live 12/29/09 Given Ambulat ory Pharmac y influenza virus vaccine, live 2009 [id number] 111 Med[employer] Inc comple t ed influenza virus vaccine, live 12/29/09 Given Ambulat ory Pharmac y hepatitis A-hepatitis B vaccine 2009 [id number] 4AA 104 GlaxoSmithKli ne complet ed hepatitis A-hepatit is B vaccine 09/10/09 Given Ambulat ory Pharmac y hepatitis A-hepatitis B vaccine 2009 [id number] 4AA 104 GlaxoSmithKli ne complet ed hepatitis A-hepatit is B vaccine 09/10/09 Given Ambulat ory Pharmac y hepatitis A-hepatitis B vaccine 2009 [id number] 4AA 104 GlaxoSmithKli ne complet ed hepatitis A-hepatit is B vaccine 09/10/09 Given Ambulat ory Pharmac y hepatitis A-hepatitis B vaccine 2009 [id number] 4AA 104 GlaxoSmithKli ne complet ed hepatitis A-hepatit is B vaccine 07/25/09 Given Ambulat ory Pharmac y hepatitis A-hepatitis B vaccine 2009 [id number] 4AA 104 GlaxoSmithKli ne complet ed hepatitis A-hepatit is B vaccine 07/25/09 Given Ambulat ory Pharmac y tuberculin purified protein derivative 2009 [id number] 96 sanofi pasteur complet ed tuberculi n purified protein derivativ e 07/22/09 Given Ambulat ory Pharmac y tuberculin purified protein derivative 2009 [id number] 96 sanofi pasteur complet ed tuberculi n purified protein derivativ e 07/22/09 Given Ambulat ory Pharmac y poliovirus vaccine, inactivated 2009 [id number] 10 sanofi pasteur complet ed polioviru s vaccine, inactivat ed 07/19/09 Given Ambulat ory Pharmac y tetanus, diphtheria, acellular pertu is 2009 [id number] 1CA 115 [facility] complet ed tetanus, diphtheri a, acellular pertussis 07/19/09 Given Ambulat ory Pharmac y meningococcal A,C,Y,W-135 (MCV4P) 2009 [id number] 114 sanofi pasteur complet ed meningoco ccal A,C,Y,W-1 35 (MCV4P) 07/19/09 Given Ambulat ory Pharmac y Novel influenza-H1N 1-09, injectable 2009 [id number] 1 127 Novartis Pharmaceutica ls complet ed Novel influenza -C2H5-25, injectabl e 07/19/09 Given Ambulat ory Pharmac y influenza virus vaccine,split 2009 [id number] 1A 15 CSL Behring complet ed influenza virus vaccine,s plit 07/19/09 Given Ambulat ory Pharmac y poliovirus vaccine, inactivated 2009 [id number] 10 sanofi pasteur complet ed polioviru s vaccine, inactivat ed 07/19/09 Given Ambulat ory Pharmac y influenza virus vaccine,split 2009 [id number] 1A 15 CSL Behring complet ed influenza virus vaccine,s plit 07/19/09 Given Ambulat ory Pharmac y meningococcal A,C,Y,W-135 (MCV4P) 2009 [id number] 114 sanofi pasteur complet ed meningoco ccal A,C,Y,W-1 35 (MCV4P) 07/19/09 Given Ambulat ory Pharmac y Novel influenza-H1N 1-09, injectable 2009 [id number] 1 127 Novartis Pharmaceutica ls complet ed Novel influenza -A0M3-44, injectabl e 07/19/09 Given Ambulat ory Pharmac y Results Combined list of recent chemistry, hematology and other laboratory results from Department of Defense and Veterans Affairs, ranging from 15 months to all on record, depending upon the facility. Order Name Results Value Reference Range Date Interpretation Specimen Comments Source Infectio us Disease HIV-1/O/2 Non-Reac tive 1 (12/25/23 11:00 AM) 12/24 N Interpretiv e Data: INTERPRETAT ION: This method is a screening procedure for the detection of HIV p24 Antigen and Antibodies to HIV-1, including Group O, and/or HIV-2. NON-REACTIV E: HIV-1 antigen and HIV-1 / HIV-2 antibodies were not detected. No laboratory evidence of HIV infection. A negative test result does not exclude the possibility of exposure to or infection with HIV. HIV antibodies and/or p24 antigen may be undetectabl e in some stages of the infection and in some clinical conditions. If acute HIV infection is suspected, consider submitting another specimen to a reference laboratory for HIV-1 RNA. SCREEN REACTIVE - CONFIRMATIO N TO FOLLOW: Possible presence of HIV-1antibo dies, HIV-2 antibodies and/or HIV-1 p24 antigen. Specimen will reflex to the confirmatio n testing that fulfills the Center for Disease Control and Prevention' s HIV diagnostic algorithm. Refer to [facility] Lab Guide for additional information : [email or web address] x Testing performed by Ila stephenson. [facility] Navin lindsey Sendouts Repository Sample Received (12/25/23 11:00 AM) 12/24 N [facility] Vital Signs Combined list of inpatient and outpatient Vital Signs from Department of Defense and Veterans Affairs, ranging from 12 months to all on record, depending upon the facility. Vital Sign Value Date Comments Source No data available for this section Ambulatory Pharmacy Encounters Combined list of: 1) Encounters from Department of Veterans Affairs facilities going back up to [facility] 18 months. 2) Encounters from the Department of Defense facilities going back up to 280 months. Location Location Details Encounter Type Encounter Number Reason For Visit Attending Provider ADM Date DC Date Status Disposition Source [place] [address](Opt ometry Clinic BMT [facility]) OUTPATIENT [id number] MARVA IRELAND 07/24 Released w/o Limitations [facility] [place] [address](O ptometr y Clinic BMT [facility]) [place] [address]([facility]) OUTPATIENT [id number] 1120-L thigh (322/49 4/7) FRANK SILVA 09/07 Released with Work/Duty Limitations [facility] [place] [address]([facility] [place] [facility] [place] [address]([facility]) OUTPATIENT [id number] 1300-fo llow up (322/49 48) BARB JIMENEZ 09/11 Released with Work/Duty Limitations [facility] [place] [address]([facility] [place] [employer] [facility]) OUTPATIENT [id number] pain in foot- TREMAINE ANTHONY 10/31 Released w/o Limitations [employer] [facility](F amily [facility]) [employer] [facility]) OUTPATIENT [id number] f/u L foot pain AYAAN KUHN 11/23 Released w/o Limitations [employer]([facility]) [id number] [facility] Dental [id number] HERBERTH JCHUNG 11/26 Discharge Disposition: Home or Self Care [id number]-4 [id number] [facility] [id number] [facility] Outpatient [id number] ANA FIGUEROA 12/25 Discharge Disposition: Home or Self Care 8344R-4 39 [facility] Procedures Combined list of: 1) Procedures from Department of Veterans Affairs facilities going back up to thelast 18 months, not all VA non-surgical procedures are included; 2) All procedures from the Department of Defense facilities. Procedure Procedure Type Code Date Perfomer Comments Sour e No data available for this section [facility] Spectacles Services Fitting Monofocal Except For Aphakia Spectacles Services Fitting Monofocal Except For Aphakia 50003 0 ELONU MAX U [facility] THERAPEUTIC, PROPHYLACTIC, OR DIAGNOSTIC INJECTION (SPECIFY SUBSTANCE OR DRUG); SUBCUTANEOUS OR INTRAMUSCULAR 0 [facility] FITTING OF SPECTACLES, EXCEPT FOR APHAKIA; MONOFOCAL 0 DoD Social History Combined list of available smoking, tobacco, and other social history from Department of Defense and Veterans Affairs facilities. Social History Type Response Date Comment Sour e This section is an empty social history section. [facility] Assessment and Plan Combined list of future care activities from Department of Defense and Veterans Affairs facilities (e.g., assessment and plan notes, appointments, orders, and referrals). Additional future care activities may be listed in the Plan of Care section. Result Assessment and Plan Date Source Assessment and Plan No data available for this section 02/12/2024 Ambulatory Pharmacy Functional Status Combined list of recent functional and cognitive assessments recorded at [facility] of Defense and [facility] Affairs (ME).VA Functional [place] Measurement (FIM) Scale: 1 = Total Assistance (Subject = 0% +), 2 = Maximal Assistance (Subject = 25% +), 3 = Moderate Assistance (Subject = 50% +), 4 = Minimal Assistance (Subject = 75% +), 5 = Supervision, 6 = Modified [place] (Device), 7 = Complete [place] (Timely, Safely). Assessment Date/Time Source Assessment Type Assessment Skill Assessment Score Assessment Details No data available for this section
--- OUTSIDE RECORDS SUMMARY | 2024-02-12 09:27 | XMS_ITS | Data Portability ---
Author Organization [facility], [address] Address [address] [place] [address] Care Team Providers Care Education Reporter Name Role Phone NATHALY SCHOFIELD Primary Care Provider Assessment No assessment recorded. Plan of Treatment Reminders Order Date Submit Date Provider Last Modified By Organization Details Last Modified Time Details Appointments None recorded. Lab None recorded. Referral None recorded. Procedures None recorded. Surgeries None recorded. Imaging None recorded. Medication Orders Bactrim DS 800 mg-160 mg tablet 023 023 [facility] #[id number], [address] [place], [address], 09:31:26 Patient TargetsNo targets recorded. Patient Instructions Encounter Date Encounter Id Patient Instructions Last Modified By Organization Details Last Modified Time 08/10/2022 [id number] cellulitis of th e eye: care instructions Not available 08/10/2022 09:31:23 Your symptoms most closely match an infection of the soft tissue surrounding your eye. We are going to treat with antibiotics. Please monitor the redness and swelling. If it is not improving after 1-2 days on antibiotics or still worsening or it seems to be affecting the eye itself please be seen urgently at an ED or by an eye senior caregiver if you can get in to one. Otherwise take the abx as directed and you can follow up as needed. Not available 08/10/2022 09:31:22 Reason for Referral None Reported. Problems No Known Problems Procedures Surgical History Date Name Laterality Status Provider Name and Address Organization Details Recorded Time extraction of wisdom tooth completed JESÚS [facility] 08/10/2022 08:38:53 Imaging Results None recorded. Procedure Notes None recorded. Medical Equipment None Reported. Allergies Allergen ID Allergen Name Allergen Category Reaction Reaction Severity Criticality Documentation Date Start Date Code Code System Note Provider Name and Address Organization Details Recorded Time 490165 Medicinal product containin g penicilli n and acting as antibacte rial agent (product) medicatio n Not available Not available Not available 08/10/2022 42271 05 SNOMED urine frequ ency/ stoma ch pains JESÚS PEREZ null, [place] - [facility] 08:36:37 483753 erythromy [place] medicatio n Not available Not available Not available 08/10/2022 4053 RxNorm fever /cram ps JESÚS PEREZ null, [place] - [facility] 08:36:47 416453 amoxicill in medicatio n Not available Not available Not available 08/10/2022 723 RxNorm urine frequ ency/ stoma ch pains JESÚS PEREZ null, PA - [facility] 08:37:29 [id number] honey bee venom medicatio n Not available Not available Not available 08/10/2022 32275 7 RxNorm JESÚS MACHNACZ null, PA - [facility] 08:37:04 [id number] codeine medicatio n Not available Not available Not available 08/10/2022 2670 RxNorm hyper activ e JESÚS PEREZ null, PA - [facility] 08:37:17 [id number] strawberr y allergeni c extract food Not available Not available Not available 08/10/2022 81274 4 RxNorm JESÚS MACHNACZ null, PA - [facility] 08:39:27 Medications Name Sig Start Date Stop Date Status Note LastModified by Organization Details LastModified Time valacyclovir 500 mg tablet TAKE 1 TABLET BY MOUTH DAILY active Not Available Not Available Not Available sulfamethoxa zole 800 mg-trimethop rim 160 mg tablet TAKE 1 TABLET BY MOUTH EVERY 12 HOURS FOR 7 DAYS active Not Available Not Available N ot Available hydrocortiso ne 2.5 % topical cream USE 1 APPL TOPICALLY 2 TIMES A DAY NEEDED FOR SKIN IRRITATION active Not Available Not Available N ot Available Vitamin D active Not Available Not Kaylee ilable Not Available Zyrtec active Not Available Not Availa ble Not Available Multi Vitamin active Not Available Not Available Not Available Vitals Date Recorded Respiratory rate Body temperature Oxygen saturation Oxygen saturation in Arterial blood by Pulse oximetry Heart rate Body weight Body mass index (BMI) Body height Systolic blood pressure Diastolic blood pressure Provider Name and Address Organization Details Last Updated DateTime 3 17 /min 97.9 [degF] 98 % 98 % 74 /min 63572.3 g 30.8 kg/m2 158.75 cm 152 mm[Hg] 88 mm[Hg] JESÚS PEREZ PA - [facility] 08:43:45 Social History Question Answer Notes LastModified by Organizat ion Details LastModified Time Tobacco Smoking Status Former Smoker JESÚS burks, [place] - [facility] 08/10/2022 08:40:36 What Is Your Level Of Alcohol Consumption? Occasional Information not available 08/10/2022 When Did You Quit Smoking? 14+yearssincel astcigarette Quit 20 Years Ago Information not available 08/10/2022 Do You Use Any Illicit Or Recreational Drugs? No Information not available 08/10/2022 Have You Recently Traveled Abroad? No Information not available 08/10/2022 Do You Or Have You Ever Used Any Other Forms Of Tobacco Or Nicotine? No Information not available 08/10/2022 Sex: Unknown Functional Status None recorded. Mental Status None recorded. Family History Relationship Description Onset Age of this Age Resolved Age Notes LastModified by Organization Details LastModified Time Father Glaucoma [email or web address] Not availabl e 08/10/2022 08:39:38 Mother Disorder of thyroid gland bmachnacz Not available 2022 08:39:43 Unspecified Relation Malignant tumor of breast bmachnacz Not available 2022 08:39:56 Notes:mother - prediabetic Medical History No medical history recorded. Gynecological History Statement/Question Response Date of LMP 07/15/2022 Is there any chance of ? No LMP Definite Obstetrics History GPAL:G 0 P 0 0 0 0 Immunizations Vaccine Type Date Status Note Provider Nam e and Address Organization Details Recorded Time Influenza, split virus, quadrivalent, preservative 7 completed JESÚS MACHNACZ null, PA - [facility] 08/10/2022 08:34:48 Tdap 7 completed JESÚS MACHNACZ null, PA - [facility] 08/10/2022 08:34:48 Influenza, split virus, trivalent, preservative 5 completed JESÚS MACHNACZ null, PA - [facility] 08/10/2022 08:34:48 Influenza, split virus, trivalent, PF 7 completed JESÚS MACHNACZ null, PA - [facility] 08/10/2022 08:34:48 Influenza, split virus, quadrivalent, PF 1 completed JESÚS MACHNACZ null, PA - [facility] 08/10/2022 08:34:48 Influenza, split virus, quadrivalent, PF 9 completed JESÚS MACHNACZ null, PA - [facility] 08/10/2022 08:34:48 Influenza, split virus, quadrivalent, PF 0 completed JESÚS MACHNACZ null, PA - [facility] 08/10/2022 08:34:48 Past Encounters Encounter ID Performer Location Encounter Start Date Encounter Closed Date Diagnosis/Indication Diagnosis SNOMED-CT Code Diagnosis ICD10 Code [id number] [address] [place] [address] 06/15/2020 16:23:18 06/15/2020 17:59:43 [id number] [address] [place] [address] 12/23/2017 09:56:07 12/23/2017 11:18:25 [id number] [address] [place] [address] 09/16/2016 16:44:00 09/16/2016 17:30:37 [id number] [address] [place] [address] 12/23/2017 08:44:29 12/23/2017 11:17:46 [id number] [address] [facility] [place] [address] 01/02/2018 08:02:51 01/02/2018 09:25:38 [id number] [address] [place] [address] 05/29/2021 09:11:41 05/29/2021 10:39:25 [id number] RASHI Waterman [address] [place] [address] 08/10/2022 08:20:36 08/10/2022 09:33:46 Cellulitis of periorbital region of left eye [id number] 25558 L03.213 Health Concerns Section Related Observation LastModified by Organization Detai ls LastModified Time None Recorded Concern Status LastModified by Organization Details LastModified Time None Recorded Advance Directives Directive None Recorded Payers Encounter Date Sequence Insurance Name Policy Number Policy Martinez Covered Member ID Martinez Member ID Guarantor Name 12/23/2017 1 [place] [employer] 112 Alia Bonnie Greer [id number] Alia Greer 01/02/2018 1 [place] 112 Alia Bonnie Greer [id number] Alia Greer 06/15/2020 1 [place] 112 Aliamohit Greer [id number] Alia Greer 05/29/2021 1 [place] 112 Alia Bonnie Greer [id number] Alia Greer 08/10/2022 1 [place] 112 Alia Bonnie Greer [id number] Alia Greer 08/10/2022 [facility] Alia Greer [id number] Alia Greer Notes Date Note Type Note Provider Name and Address Organization Details Recorded Time 08/11/19 23 text/htm l Eye problemsReported bypatient.source of patient informationInformation obtained from patient; Patient arrived at Urgent Care ambulatory Location:left Eye Symptoms:no redness; no discharge of pus from the eyes; no pain in the eyes; no blurred vision Context:redness around left eye spreading RASHI Cabello [address] [place], [address], PA - [facility] 08/10/2022 09:31:35 OBGyn Episode No OBEpisode recorded.
[2024-02-12 09:32] VITALS: BP 130/82; PULSE 76; O2SAT 99; BMI 31.7
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
== END 2024-02-12 11:09 | disposition home or self-care (01) ==
PROVIDERS: PCP Internal Medicine; Visit Provider Internal Medicine
DX: M25.511 Pain in right shoulder (principal); M54.50 Low back pain, unspecified; V89.2XXA Person injured in unspecified motor-vehicle accident, traffic, initial encounter; Z04.3 Encounter for examination and observation following other accident

== ENCOUNTER → 2024-02-12 09:24 | Outpatient (BNVA) | payer OTHER, SELFPAY | PROVIDERS: PCP Internal Medicine; Visit Provider Internal Medicine ==

== ENCOUNTER 2024-09-19 07:31 | Outpatient (REF) | payer OTHER, SELFPAY | END 2024-09-19 07:32 | disposition home or self-care (01) | LOC: HO.MAMMO 07:31 | PROVIDERS: PCP Internal Medicine; Visit Provider Internal Medicine | DX: Z12.31 Encounter for screening mammogram for malignant neoplasm of breast (principal) | CPT/HCPCS: 77063; 77067 ==

== ENCOUNTER → 2024-09-19 07:45 | Outpatient (BNV) | payer OTHER, SELFPAY | PROVIDERS: PCP Internal Medicine; Visit Provider Internal Medicine | DX: Z12.31 Encounter for screening mammogram for malignant neoplasm of breast (principal) | CPT/HCPCS: 77063; 77067 ==

== ENCOUNTER 2024-09-27 08:18 | Outpatient (AMB) | payer OTHER, SELFPAY ==
[2024-09-27 08:21] VITALS: BP 122/80; PULSE 73; TEMP 36.6; O2SAT 98; BMI 31.3
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
--- OUTSIDE RECORDS SUMMARY | 2024-09-27 08:25 | XMS_ITS | Continuity of Care Document ---
Author Name [facility] Organization [facility] Care Team Providers Care Sales And Marketing Representative Name Role Phone [facility] Unavailable Unavailable Problems Combined list of problems from Department of Defense and Veterans Affairs facilities. It does not include entries that were removed or entered in error. Problem Status Onset Date Problem Type Date of Resolution Comme nts Source PLANTAR FASCIITIS Active Condition [facility] UNSPECIFIED MUSCLE STRAIN Active Condition [facility] THIGH STRAIN Active Condition [facility] visit for: services physical accession Active Condition DoD Allergies, Adverse Reactions, Alerts Combined list of allergies from Department of Defense and Veterans Affairs facilities. It does not include entries that were removed or entered in error. Substance Category Reaction Severity Reaction type Status Date Reported Comments Source codeine Propensity to adverse reactions to drug Unknown Active 0 Unknown Organizat ion CODEINE {Cla } Drug allergy (disorder) Unknown active 0 [facility] ERYTHROMYCIN Drug allergy (disorder) Unknown active 0 [place] [address] erythromycin Propensity to adverse reactions to drug Unknown Active rash Unknown Organizat ion PENICILLINS Drug allergy (disorder) Unknown active 0 [place] [address] penicillins Propensity to adverse reactions to drug Unknown Active rash Unknown Organizat ion Immunizations Combined list of available immunizations from the Department of Defense and Veterans Affairs facilities. 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 Source influenza, injectable, quadrivalent- pf 2021 [id number] GlaxoSmithKli ne complet ed influenza , injectabl e, quadrival ent-pf 12/07/21 Given Ambulat ory Pharmac y influenza, injectable, quadrivalent- pf 2021 [id number] 150 GlaxoSmithKli ne complet ed influenza , injectabl e, quadrival ent-pf 12/07/21 Given Ambulat ory Pharmac y COVID Vaccine Pfizer 2020 [id number] PFIZER complet ed COVID Vaccine Pfizer 02/07/21 Given Ambulat ory Pharmac y COVID Vaccine Pfizer 2020 [id number] PFIZER complet ed COVID Vaccine Pfizer 02/07/21 Given Ambulat ory Pharmac y influenza, injectable, quadrivalent 2020 [id number] 158 [facility] , injectabl e, quadrival ent 11/12/20 Given Ambulat ory Pharmac y influenza, injectable, quadrivalent 2020 [id number] 158 GlaxoSmithKli ne complet ed influenza , injectabl e, quadrival ent 11/12/20 Given Ambulat ory Pharmac y COVID Vaccine Moderna 2020 [id number] 207 complet ed COVID Vaccine Moderna 04/29/20 Given Ambulat ory Pharmac y COVID Vaccine Moderna 2020 [id number] 207 complet ed COVID Vaccine Moderna 04/29/20 Given Ambulat ory Pharmac y COVID Vaccine Moderna 2020 [id number] 207 complet ed COVID Vaccine Moderna 03/31/20 Given Ambulat ory Pharmac y influenza, injectable, quadrivalent- pf 2019 [id number] 150 sanofi pasteur complet ed influenza , injectabl e, quadrival ent-pf 12/31/19 Given Ambulat ory Pharmac y influenza, injectable, quadrivalent- pf 2019 [id number] 150 sanofi pasteur complet ed influenza , injectabl e, quadrival ent-pf 12/31/19 Given Ambulat ory Pharmac y influenza, seasonal, injectable 2018 [id number] 141 Seqirus complet ed influenza , seasonal, injectabl e 12/29/18 Given Ambulat ory Pharmac y influenza, seasonal, injectable 2018 [id number] 141 Seqirus complet ed influenza , seasonal, injectabl e 12/29/18 Given Ambulat ory Pharmac y tetanus, diphtheria, acellular pertu is 2016 [id number] 115 sanofi pasteur complet ed tetanus, diphtheri a, acellular pertussis 10/23/16 Given Ambulat ory Pharmac y influenza, seasonal, injectable-pf 2016 [id number] 140 sanofi pasteur complet ed influenza , seasonal, injectabl e-pf 10/23/16 Given Ambulat ory Pharmac y influenza, seasonal, injectable-pf 2016 [id number] 140 sanofi pasteur complet ed influenza , seasonal, injectabl e-pf 10/23/16 Given Ambulat ory Pharmac y tetanus, diphtheria, acellular pertu is 2016 [id number] 115 sanofi pasteur complet ed tetanus, diphtheri a, acellular pertussis 10/23/16 Given Ambulat ory Pharmac y influenza, seasonal, injectable 2016 [id number] 141 Seqirus complet ed influenza , seasonal, injectabl e 03/01/16 Given Ambulat ory Pharmac y influenza, seasonal, injectable 2016 [id number] 141 Seqirus complet ed influenza , seasonal, injectabl e 03/01/16 Given Ambulat ory Pharmac y influenza, seasonal, injectable-pf 2014 [id number] 140 CSL Behring complet ed influenza , seasonal, injectabl e-pf 12/10/14 Given Ambulat ory Pharmac y influenza, seasonal, injectable-pf 2014 [id number] 140 CSL Behring complet ed influenza , seasonal, injectabl e-pf 12/10/14 Given Ambulat ory Pharmac y influenza, seasonal, injectable-pf 2013 [id number] 140 CSL Behring complet ed influenza , seasonal, injectabl e-pf 11/27/13 Given Ambulat ory Pharmac y influenza, seasonal, injectable-pf 2013 [id number] 140 CSL Behring complet ed influenza , seasonal, injectabl e-pf 11/27/13 Given Ambulat ory Pharmac y Influenza, injectable, MDCK-pf 2012 [id number] 153 Novartis Pharmaceutica ls complet ed Influenza , injectabl e, MDCK-pf 12/19/12 Given Ambulat ory Pharmac y Influenza, injectable, MDCK-pf 2012 [id number] 153 Novartis Pharmaceutica ls complet ed Influenza , injectabl e, MDCK-pf 12/19/12 Given Ambulat ory Pharmac y influenza, seasonal, injectable-pf 2011 [id number] 140 CSL Behring complet ed influenza , seasonal, injectabl e-pf 12/21/11 Given Ambulat ory Pharmac y influenza, seasonal, injectable-pf 2011 [id number] 140 CSL Behring complet ed influenza , seasonal, injectabl e-pf 12/21/11 Given Ambulat ory Pharmac y influenza, seasonal, injectable-pf 2010 [id number] 140 CSL Behring complet ed influenza , seasonal, injectabl e-pf 01/12/11 Given Ambulat ory Pharmac y influenza, seasonal, injectable-pf 2010 [id number] 1A 140 CSL Behring complet ed influenza [...] Pharmac y influenza virus vaccine, live 2009 [id number] 111 Medimmune Inc comple t ed influenza virus vaccine, live 12/29/09 Given Ambulat ory Pharmac y influenza virus vaccine, live 2009 [id number] 111 Medimmune Inc comple t ed influenza [...] Pharmac y tuberculin purified protein derivative 2009 [id number] 96 sanofi pasteur complet ed tuberculi n purified protein derivativ e 07/22/09 Given Ambulat ory Pharmac y tuberculin purified protein derivative 2009 [id number] 96 sanofi pasteur complet ed tuberculi n purified protein derivativ e 07/22/09 Given Ambulat ory Pharmac y poliovirus vaccine, inactivated 2009 [id number] 10 sanofi pasteur complet ed polioviru s vaccine, inactivat ed 07/19/09 Given Ambulat ory Pharmac y tetanus, diphtheria, acellular pertu is 2009 [id number] 115 GlaxoSmithKli ne complet ed tetanus, diphtheri a, acellular pertussis 07/19/09 Given Ambulat ory Pharmac y meningococcal A,C,Y,W-135 (MCV4P) 2009 [id number] 114 sanofi pasteur complet ed meningoco ccal A,C,Y,W-1 35 (MCV4P) 07/19/09 Given Ambulat ory Pharmac y Novel influenza-H1N 1-09, injectable 2009 [id number] 1 127 Novartis Pharmaceutica ls complet ed Novel influenza -[id number], injectabl e 07/19/09 Given Ambulat ory Pharmac y influenza virus vaccine,split 2009 [id number] 1A 15 CSL Behring complet ed influenza virus vaccine,s plit 07/19/09 Given Ambulat ory Pharmac y poliovirus vaccine, inactivated 2009 [id number] 10 sanofi pasteur complet ed polioviru s vaccine, inactivat ed 07/19/09 Given Ambulat ory Pharmac y influenza virus vaccine,split 2009 [id number] 1A 15 CSL Behring complet ed influenza virus vaccine,s plit 07/19/09 Given Ambulat ory Pharmac y meningococcal A,C,Y,W-135 (MCV4P) 2009 [id number] 114 sanofi pasteur complet ed meningoco ccal A,C,Y,W-1 35 (MCV4P) 07/19/09 Given Ambulat ory Pharmac y Novel influenza-H1N 1-09, injectable 2009 [id number] 1 127 Novartis Pharmaceutica ls complet ed Novel influenza -[id number], injectabl e 07/19/09 Given Ambulat ory Pharmac y Results Combined list of recent chemistry, hematology and other laboratory results from Department of Defense and Veterans Affairs, ranging from 15 months to all on record, depending upon the facility. Order Name Results Value Reference Range Date Interpretation Specimen Comments Source Infectiou s Disease HIV-1/O/2 Non-Reac tive 1 (12/25/23 11:00 [...] Prevention' s HIV diagnostic algorithm. Refer to [facility] Lab Guide for additional information : [email or web address]. [email or web address]/ [email or web address] x Testing performed by [employer] reyuminescesilvia stephenson. 5600A-U MOBEXOSALoudr EPILAB Miscellan eous Sendouts Repository Sample Received (12/25/23 11:00 AM) 12/24 N 5600A-U MOBEXOSAM EPILAB Encounters Combined list of: 1) Encounters from Department of Veterans Affairs facilities going backup to the last 18 months, not all VA inpatient encounters are included; 2) Encounters from the Department of Defense facilities going backup to 280 months. Location Location Details Encounter Type Encounter Number Reason For Visit Attending Provider ADM Date DC Date Status Disposition [place] [address](Opt ometry Clinic BMT [facility]) OUTPATIENT [id number] MARVA IRELAND 07/24 Released w/o Limitations [facility] [place] [address](O ptometr y Clinic [facility]MT [facility]) [place] [address]([facility]) OUTPATIENT [id number] 1120-L thigh (49 47) FARNK SILVA 09/07 Released with Work/Duty Limitations [facility] [place] [address](T [facility] [place] [address](Tra [facility], [facility]) OUTPATIENT [id number] 1300-fo llow up (49 4/8) BARB JIMENEZ 09/11 Released with Work/Duty Limitations [facility] [place] [address](T [facility] [place] [facility](Fam n[facility]) OUTPATIENT [id number] pain in foot- TREMAINE ANTHONY 10/31 Released w/o Limitations [facility](F amily Practic e [facility]) [facility]am [facility]) OUTPATIENT [id number] f/u L foot pain AYAAN KUHN 11/23 Released w/o Limitations [facility](F amily Pract[facility]) 8344R-439 [facility] Dental [id number] HERBERTH RAMOS 11/26 Discharge Disposition: Home or Self Care 8344R-4 39 AMDS 8344R-439 [facility] Outpatient [id number] ANA FIGUEROA 12/25 Discharge Disposition: Home or Self Care 8344R-4 39 [facility] 8344R-439 [facility]DS Between Visit [id number] 02/22 Discharge Disposition: Home or Self Care 8344R-4 39 AMDS Procedures Combined list of: 1) Procedures from Department of Veterans Affairs facilities going back up to thelast 18 months, not all VA non-surgical procedures are included; 2) All procedures from the Department of Defense facilities. Procedure Procedure Type Code Date Perfomer Comments Sourc e No data available for this section Ambulatory Pharmacy [facility] Fitting Monofocals (Not For Aphakia) [facility] Fitting Monofocals (Not For Aphakia) [address] 07/24/2009 MAX BECERRA [facility] Social History Combined list of available smoking, tobacco, and other social history from Department of Defense and Veterans Affairs facilities. Social History Type Response Date Comment Sourc e This section is an empty social history section. DoD Assessment and Plan Combined list of future care activities from Department of Defense and Veterans Affairs facilities (e.g., assessment and plan notes, appointments, orders, and referrals). Additional future care activities may be listed in the Plan of Care section. Result Assessment and Plan Date Source Assessment and Plan Extracted from:Title : PHA 2024 Author: MARGARET BARRY Date: 07/28/24 ANNUAL PERIODIC HEALTH ASSESSMENT I. BACKSHOE PERSON INFORMATION AND DEMOGRAPHICS (SMI) 1. Last Name: LYNETTE 2. First Name: ALIA 3. Middle Name: LEATHA 4. Assessment Date: 5. : 6. Age: 44 7. Sex: F 8. DoD ID Number: [id number] 9. Service Branch: [employer] 10. 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 Status: Active [employer] 12. 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 Unit Name: [address] [employer] 14. Duty Station/Location: [place] 15. UIC: [id number] 16. Is this your first Periodic Health Assessment (PHA)?: N 17. Are you enrolled in a secure messaging system with your health care provider?: Y 18. Current contact information: Preferred Method: Email 1 DSN: [id number] Day Time Phone: [phone] Night Time Phone: [phone] Email 1: [email or web address] Email 2: Address: [address] [place] [address]: [facility]: [place] Zip Code: [address] 19. Point of contact who can always reach you: Name: Yoanna Caballeron Phone 1: [phone] Phone 2: EMAIL: [email or web address] Address: [address] [place] [address]: [facility]: [place] Zip Code: [address] II. DEPLOYMENT INFORMATION (DEP) 1. [ 0 ] Total number of deployments in the PAST 5 YEARS 4. [ N ] Are you going to deploy within the NEXT 120 DAYS? III. 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 [ No ] Does your specialty require an operational duty physical exam? 4. [ No ] Are you currently enrolled in a medical surveillance/occupational health program?: No IV. MEDICAL CONDITIONS (NANETTE): 1. Since your last PHA, have you experienced any of the following health conditions, and if so, what is your status? [ Persistent or recurring noises in head or ears ] Conditions with no medical care [ ] Conditions with medical care, but no longer under treatment [ ] Conditions with medical care, and NOW under treatment 2. Since your last PHA, have you experienced any of the following health conditions, and if so, what is your status? [ ] Conditions with no medical care [ ] Conditions with medical care, but no longer under treatment [ ] Conditions with medical care, and NOW under treatment 3. For any condition marked YES in question 1 or 2, are you currently on any profile or limited duty for that condition? [ ] Conditions 4. [ Not Sure ] Have you been based or stationed at a location where an open burn pit was used? 5. [ Not Sure ] Have you been exposed to toxic airborne chemicals or other airborne contaminants? 6. [ No ] Are you enrolled in the Airborne Hazards and Open Burn Pit Registry? 7. [ Yes ] Federal law requires eligible members to enroll in the Airborne Hazards and Open Burn Pit Registry or opt-out. If eligble, choose one: 8. Have you had any surgery since your last PHA?: No 10.a. [ No ] Since your last PHA, has a health care provider recommended surgery(s) that you have not had? 11.a. [ No ] Do you currently require hearing aids, special medical supplies, CPAP, adaptive equipment, assistive technology devices, and/or other special accommodations? 12.a. [ No ] Do you have a waiver or profile for any part of your Service's physical fitness test? 13.a. [ No ] Do you have any problems wearing a gas mask, ballistic helmet, body armor, and/or chemical/biological protective garments? 14.a. [ No ] Have you ever been told by a health care provider that you SHOULD NOT receive an immunization for medical reasons? 15.a. [ No ] Do you have a permanent profile or an Assignment Limitation Code C? 16.a. [ No ] Are you on a temporary profile or limited duty? 17. [ 2 ] During the PAST 2 years, how many times have you been placed on a temporary profile or on limited duty? V. INDIVIDUAL MEDICAL READINESS (IMR) 1. [ Yes ] Do you have any allergies? 2. [ Bee Stings, Penicill ] Allergy List 3. [ No and required ] Do you have red medical warning dog tags? 4. [ Yes ] Do you wear corrective lenses? 5. [ 2 or more ] How many pairs of glasses do you have? 6. [ No ] Do you have gas mask inserts? . BEHAVIORAL HEALTH (MHA) 1. a. [ None ] Over the PAST MONTH, what major life stressors have you experienced that are a cause of significant concern or make it difficult for you to do your work, take care of things at home, or get along with other people (for example, serious conflicts with others, relationship problems, or a legal, disciplinary or financial problem)? 2. a. [ No ] In the PAST YEAR did you receive care for any mental health condition or concern such as, but not limited to post traumatic stress disorder (PTSD), depression, anxiety disorder, alcohol abuse or substance abuse? 3. [ None ] What prescription or over-the counter medications (including herbals/supplements) for sleep, pain, combat stress, or a mental health problem are you CURRENTLY taking? 4. a. [ No ] In the past 12 months, have you gambled? 5. a. [ 2-4 times a month ] How often do you have a drink containing alcohol? 5. b. [ 1 or 2 ] How many drinks containing alcohol do you have on a typical day when you are drinking? 5. c. [ Never ] How often do you have six or more drinks on one occasion? 6. Have you ever had any experience that was so frightening, horrible, or upsetting that in the PAST MONTH, you: 6. a. [ No ] Have had nightmares about it or thought about it when you did not want to? 6. b. [ No ] Tried hard not to think about it or went out of your way to avoid situations that remind you of it? 6. c. [ No ] Were constantly on guard, watchful or easily startled? 6. d. [ No ] Weston numb or detached from others, activities, or your surroundings? 6. e. [ Not answered ] Weston guilt or unable to stop blaming yourself or others for the event(s) or any problems the event(s) may have caused? 7. Over the LAST 2 WEEKS, how often have you been bothered by the following problems? 7. a. [ Few or several days ] Little interest or pleasure in doing things 7. b. [ Few or several days ] Feeling down, depressed, or hopeless 8. [ No ] Would you like to schedule an appointment with a health care provider to discuss any health concern(s)? 9. [ No ] Are you interested in receiving information or assistance for a stress, emotional or alcohol concern? 10. [ No ] Are you interested in receiving assistance for a family or relationship concern? 11. [ No ] Would you like to schedule a visit with a timber hewer, mental health care provider, or a community support counselor? 12. [ Not answered ] Are you currently being evaluated for, have a current diagnosis or history of, or exhibit symptoms consistent with gender dysphoria? (i.e. distress due to gender identity differing from sex that impacts or limits functioning) VII. FAMILY HISTORY AND LIFESTYLE (LIF) 1. [ Good ] Overall, how would you rate your health during the PAST MONTH? 2. [ Cancer, Heart-related conditions, Diabet ] Member indicates that family members have the following problems 3. The following family members has/had a history of cancer: Breast: Grandmother LIVER: Grandfather CERVICAL: Sister 4. The following family members has/had a history of heart-related conditions: High Blood Pressure: Mother, Father, Sister 5. The following family members has/had a history of diabetes: Unknown: Mother 6. [ Yes ] I participate in moderate intensity physical activites at least 2.5 hours, or a combination of moderate and vigorous aerobic activites, for at least 75 minutes per week. 7. In a typical week, I do physical activities specifically designed to STRENGTHEN my muscles: [ 3 ] Day(s) per week 8. [ Valtrex, Sudafed, Zyrtec ] What prescriptions or scym-wkh-szaofxg medications are you CURRENTLY taking for health problems on a ROUTINE BASIS? 9. Which of the following products have you taken since your last PHA: Multi-Vitamins: Once a day Individual Vitamins or Minerals: Once a day Vitamin D: Less than once a month 11. Think about the PAST 30 DAYS. How often did you eat/drink the following foods/beverages? [ 1 serving per day ] Fruits [ 2 servings per day ] Vegetables [ 1 serving per day ] Starchy Vegetables [ 1 serving per day ] Whole Grains [ 1 serving per day ] Dairy and Calcium Containing Foods [ 1 or 2 servings per week ] Fish [ 1 serving per day ] Lean Protein [ Rarely or Never ] Sugar-Sweetened Beverages ] Have you had a cholesterol check by a health customer care assistant within the PAST 5 YEARS? 13.a. In the PAST 30 DAYS, which of the following products have you used on at least one day? None 15. Which of the following best describes your past tobacco use? I used tobacco in the past, but quit in 2009 16. [ No ] Are you regularly exposed to secondhand smoke? 17. [ 5 to less than 7 hours ] During the LAST 2 WEEKS, how many hours of sleep did you get on most days? 18. [ No ] During the LAST 2 WEEKS, have you felt impaired or unable to adequately perform due to sleepiness or poor quality sleep? 19. [ Yes ] Have you had any unexplained weight loss or gain since your last PHA? 20. Member is not at risk for sexually transmitted infections. 22. Since your last PHA, what, if anything, have you and your partner used to keep from getting ? [ I have a same sex partner(s). ] I am not actively taking steps to prevent as 23. [ No ] In the last year, have you or your partner had a scare, where you were not trying to get but were worried enough to use a home test? VIII. WOMEN'S HEALTH (WOM) 1. [ No ] Do you wish to receive contraceptive counseling? 2. [ I am not now, and was not or delivered in the past 12 months ] Which of the following best describes you? 3. [ No ] Have you had a total hysterectomy? 4. [ No ] Are you postmenopausal and no longer experiencing menstrual cycles? 5. [ Don't Know ] Are you currently taking folic acid or a vitamin containing folic acid 6. [ No ] Do you have heavy and/or irregular menstrual cycles/pain or premenstrual syndrome (PMS)? 7. [ No ] Do you have recurrent urinary tract infections? 8. [ Yes ] Have you had a Pap test within the PAST 3 YEARS? 9. [ Yes ] Have you ever had an abnormal Pap Test? 10. [ No ] Have you ever had a colposcopy, or cryotherapy on your cervix? 13. [ No ] Do you have a history of gestational diabetes? X. OTHER MEDICAL (OTH) 1. [ 3 ] Rate the amount of pain you have had, on average, over the PAST 24 HOURS 2. [ No ] Are you receiving treatment for pain? 3. [ Yes ] Since your last PHA, have you received care or treatment for any medical and/or mental health condition(s) from a civilian or non- facility? 4. List the condition(s) treated and where the care was provided: Conditions: Dog Bite Where: [facility] [place] 5. Member acknowledged responsibility for reporting health issues. 7. [ No ] Woud you like to schedule an appointment with a health care provider to discuss any health concerns? XI. SEPARATION AND MCFP 1. [ No ] Are you planning to separate or retire within the next year from Active Duty or [employer] Duty (activated for greater than 30 continuous days) OR do you intend to file a claim for disability compensation with the Veterans Benefits Administration? PART B. RECORD REVIEW AND RECOMMENDATIONS I. RECORD REVIEWER INFORMATION 1. Last Name: CLARISSA 2. First Name: UNRULY 3. Middle Name: 4. Service Branch: [employer] 5. Status: Active [employer] or Full-Time Support 6. 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 EMAIL: [email or web address] 8. Facility: [address] [facility] [facility] 9. Unit: [address] 10. Address: [address] [place] [address] 11. State: [place] 12. Zip Code: [address] 13. 14. Date Record Review: II. MEDICAL SCREENING 1. [ ] Date of archeology faculty member's most recent PHA 2. [ 5 feet 3 inches Date: ] archeology faculty member's most recently documented height 3. [ 166 pounds Date: ] archeology faculty member's most recently documented weight 4. [ 137/87 Date: ] archeology faculty member's most recently documented blood pressure reading 5. [ No ] Does the archeology faculty member have a history of abnormal blood pressure since their last PHA? 6. [ Yes ] Does the archeology faculty member have a laboratory test of sickle cell trait documented in their permanent medical record? 7. [ No Cholesterol Test Documented ] What is the date of the archeology faculty member's most recently documented cholesterol test? 8. [ No Colon Cancer Screening Documented ] What is the date of the archeology faculty member's most recently documented colon cancer screening? 9. [ Valtrex, Sudafed, Zyrtec ] List of archeology faculty member's active medications listed in their permanent medical record 10. [ No ] Is there a discrepancy between the active medication record review and the archeology faculty member's self-reported list of medications? 11. [ Member has received civilian care Condition(s): Dog Bite Where: [facility] [place], [place] ] List documented significant care the archeology faculty member has received since their last PHA from a provider OUTSIDE the Health System 12. 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 13. 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 [ Not Answered ] Confirm that vaccine exemptions are listed in the medical record for each vaccine listed 16. 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 Document any discrepancies IV. FAMILY HISTORY AND LIFESTYLE 1. 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 V. WOMEN'S HEALTH 3. [ No Documented Pap Test ] Date and result of the most recent Pap test 4. [ N/A ] Notes from review of health records associated with history of abnormal Pap, colposcopy, excisional procedure, or cryotherapy VII. INDIVIDUAL MEDICAL READINESS 1. 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 3. [ Classification: 1 ] Most recently documented dental exam 4. [ Yes ] Is the archeology faculty member current on all required immunizations in the immunization tracking system? 5. [ Yes ] Is the archeology faculty member current with Service-specific requirements for glasses and gas mask inserts? 6. Does the archeology faculty member have the following laboratory tests documented in their permanent medical record? [ Yes ] HIV test within the PAST 24 months [ Yes ] G6PD results on file [ Yes ] Blood type and Rh on file [ Yes ] DNA test on file IX. ADDITIONAL RECORD REVIEWER COMMENTS 1. This record review does NOT have a need for provider notification or referral.2. Additional comments about this record review that need to be forwarded to the Health Business Law Teacher completing PART C: Persistent or recurring noises in your head or ears - didn't get tx JLV reviewed. No significant findings. Date Record Review Completed: PART C. HEALTH CARE PROVIDER I. MENTAL HEALTH ASSESSMENT (MHA) PROVIDER INFORMATION 1. Last Name: Edi 2. First Name: Huma 3. Middle Name: 4. Service Branch: Other 5. 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 EMAIL: [email or web address] 8. Facility: [facility] Admin Office 9. Unit: N/A 10. [facility] 11. State: [place] 12. Zip Code: [address] 13. 14. Date HCP Review initiated: 1. Member marked that they did not have a concern or a difficulty with a major life stressor. 2. Address concerns identified on member questions 2 and 3. History of mental health care: N/A Member's response: Provider's comments: Medications: N/A Member's response: Provider's comments: 3. Member's AUDIT-C screening score was 1. (nothing required) 4. Member did not mesfin yes on two or more of questions 6a through 6e. 5. Member did not mesfin More than half the days or nearly every day on question 7a or 7b. 6. Suicide risk evaluation. 6. a. Ask: Over the past month, have you wished you were or wished you could go to sleep and not wake up?: No 6. b. Ask: Have you actually had any thoughts of killing yourself?: No 6. f. 1. Ask: In you lifetime, have you done anything, started to do anything, or prepared to do anything to end your life?: No 6. g. Further risk assessment comments: NO SI/HI 7. Member states that they have not had thoughts or concerns over the past month that they might hurt or lose control with someone. 9. Summary of Provider's identified concerns needing referrals: None 11. Comments: UPDATED SM RESPONSES FOR QUESTIONS 3-5 WE DISCUSSED DEPRESSION SCREENING-SM DENIED ANY CONCERNS OR HX OF DEPRESSION, BUT STATED THAT WORK HAS BEEN STRESSFUL DUE TO ALL THE CHANGES WITH . 13. Supplemental services recommended/information provided: No supplemental services required Date MHA Certified: III. PERIODIC HEALTH ASSESSMENT (PHA) PROVIDER INFORMATION 1. Last Name: GARRISON 2. First Name: ANDREINA 3. Middle Name: 4. Service Branch: As Seen on TV 5. Status: Reservist 6. Title: Physician (DO LANEY) 7. EMAIL: [email or web address] 8. Facility: [address] [place], [place] [address] 9. Unit: [address] [place], [place] [address] 10. Address: [address] [place] [address] 11. State: [place] 12. Zip Code: [address] 13. Phone: [phone] 14. Date HCP Review initiated: IV. PERIODIC HEALTH ASSESSMENT PROVIDER RECOMMENDATIONS and REFERRALS 1. Provider concerns with this assessment: No issues or concerns identified V. SUMMARY AND COMMENTS 1. Additional information summarizing findings during the archeology faculty member assessment: 2. Provider Comments: . INDIVIDUAL MEDICAL READINESS DISPOSITION DETERMINATION NANETTE: Ready DEN: Ready IMM: Ready LAB: Ready ME: Ready IMR Status: Fully Medically Ready VII. 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 Reference Negrito 6490.07 Yes (archeology faculty member DOES NOT currently have a medical condition that limits deployability) Date PHA Completed: END OF [id number] REPORT 09/27/2024 [id number] AMDS Functional Status Combined list of recent functional and cognitive assessments recorded at [facility] [employer] [facility] [employer] [facility] (VA).VA Functional [place] Measurement (FIM) Scale: 1 = Total Assistance (Subject = 0% +), 2 = Maximal Assistance (Subject = 25% +), 3 = Moderate Assistance (Subject = 50% +), 4 = Minimal Assistance (Subject = 75% +), 5 = Supervision, 6 = Modified [place] (Device), 7 = Complete [place] (Timely, Safely). Assessment Date/Time Source Assessment Type Assessment Skill Assessment Score Assessment Details No data available for this section
== END 2024-09-27 08:56 | disposition home or self-care (01) ==
LOC: HO.HMCC 08:18
PROVIDERS: PCP Internal Medicine; Visit Provider Internal Medicine
DX: Z00.01 Encounter for general adult medical examination with abnormal findings (principal); M25.571 Pain in right ankle and joints of right foot; M25.572 Pain in left ankle and joints of left foot; G89.29 Other chronic pain; E66.09 Other obesity due to excess calories; Z68.30 Body mass index [BMI] 30.0-30.9, adult; E55.9 Vitamin D deficiency, unspecified; Z12.11 Encounter for screening for malignant neoplasm of colon

== ENCOUNTER → 2024-09-27 08:18 | Outpatient (BNVA) | payer OTHER, SELFPAY | PROVIDERS: PCP Internal Medicine; Visit Provider Internal Medicine | DX: Z00.01 Encounter for general adult medical examination with abnormal findings (principal); M25.571 Pain in right ankle and joints of right foot; M25.572 Pain in left ankle and joints of left foot; G89.29 Other chronic pain; E66.09 Other obesity due to excess calories; Z68.30 Body mass index [BMI] 30.0-30.9, adult; E55.9 Vitamin D deficiency, unspecified; Z71.3 Dietary counseling and surveillance | CPT/HCPCS: 96127 ==

== ENCOUNTER 2024-10-14 06:12 | Outpatient (REF) | payer OTHER, SELFPAY ==
[2024-10-14 10:12] LABS: MANUAL DIFF FLAG NO
[2024-10-14 10:17] LABS: Hematocrit 38.1 % (37.0-47.0); Hemoglobin 13.0 g/dl (12.0-16.0); Imm Gran Abs Auto 0.01 X10*3/uL (0.00-0.03); Imm Gran Pct Auto 0.2 % (0.0-0.4); Lymphocytes Absolute Auto 2.2 X10*3/uL (1.2-4.9); Mean Corpuscular HGB Conc 34.1 g/dl (31.0-35.0); Mean Corpuscular Hemoglobin 30.9 pg (27.0-33.0); Mean Corpuscular Volume 90.5 fL (80.0-98.0); NRBC Abs Auto 0.000 X10*3/uL (0.0-0.012); NRBC Pct Auto 0.0 /100WBC (0.0-0.2); Platelet Count 273 X10*3/uL (160-400); Red Blood Count 4.21 X10*6/uL (4.20-5.50); White Blood Count 6.0 X10*3/uL (4.8-10.8)
[2024-10-14 10:55] LABS: Alanine Aminotransferase 16 U/L (0-31); Albumin Level 4.3 g/dL (3.5-5.0); Alkaline Phosphatase 66 U/L (39-117); Anion Gap 10 (12-20); Aspartate Amino Transferase 25 U/L (5-31); Blood Urea Nitrogen 11 mg/dL (9-16); Calcium 8.7 mg/dL (8.4-10.2); Carbon Dioxide 27 mmol/L (22-29); Chloride 108 mmol/L (96-108); Cholesterol 224 mg/dL (<200); Estimated Glomerular Filt Rate > 60; HDL Cholesterol 68 mg/dL (>40); Potassium 4.1 mmol/L (3.3-5.1); Sodium 141 mmol/L (135-145); Total Protein 6.9 g/dL (6.5-8.0); Triglycerides 104 mg/dL (<150)
[2024-10-19 18:53] LABS: Vitamin D 25-OH, D2 <4 ng/mL; Vitamin D 25-OH, D3 21 ng/mL; Vitamin D 25-OH, Total 21 ng/mL (30-100)
== END 2024-10-14 06:13 | disposition home or self-care (01) ==
LOC: HO.HMGCLDS 06:12
PROVIDERS: PCP Internal Medicine; Visit Provider Internal Medicine
DX: Z00.01 Encounter for general adult medical examination with abnormal findings (principal); M25.571 Pain in right ankle and joints of right foot; M25.572 Pain in left ankle and joints of left foot; G89.29 Other chronic pain; E55.9 Vitamin D deficiency, unspecified; E66.09 Other obesity due to excess calories; Z68.30 Body mass index [BMI] 30.0-30.9, adult
CPT/HCPCS: 36415; 80053; 80061; 82306; 84443; 85025

== ENCOUNTER 2025-01-25 12:51 | Outpatient (AMB) | payer OTHER, SELFPAY ==
--- NOTE | 2025-01-25 12:58 | A.OFFVIS_ITS ---
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 Radiology Nurse: Radiology Nurse Present (Manuela) Accompanied by: Self / Same As Patient Allergies amoxicillin (AMOXICILLIN) Allergy (Unknown, Verified 09/27/24 08:21) Nausea and Vomiting, GI upset bee pollen (BEE STINGS) Allergy (Unknown, Verified 09/27/24 08:21) Shortness of Breath, swelling codeine (CODEINE) Allergy (Unknown, Verified 09/27/24 08:21) Tachycardia erythromycin base (ERYTHROMYCIN BASE) Allergy (Unknown, Verified 09/27/24 08:21) Fever, Increased urination penicillin V Allergy (Unknown, Verified 09/27/24 08:21) increased urination, fever Penicillins (PENICILLINS) Allergy (Unknown, Verified 09/27/24 08:21) Fever Is last menstrual period known: Yes Last menstrual period: 01/11/25 Post menopausal: No Patient : No HPI Comments Details: Pt presents today for ANNUAL exam She has the following concerns: none She is in a relationship x 17 + yrs with her . She denies any issues of DV Exercise: daily Nutrition/calcium: adequate intake Contraception: same sex couple Last Pap: 2020 , Results: neg Last mammo: 2024, Results Neg she reports monthly menses w/o bothersome symptoms PFSH Medical History BRCA negative Loss of sense of smell Respiratory tract infection due to COVID-19 virus Recurrent cold sores Surgical History Hx of endoscopy Hx of wisdom tooth extraction Family History (Updated 01/25/25 @ 13:56 by Sammi Mcfadden CNM) Paternal Grandmother History of breast cancer Maternal Aunt History of breast cancer Paternal Aunt History of breast cancer Father Hypertension Prostate CA Throat cancer Mother Hypertension Thyroid disease Sister Hypertension Paternal Uncle Bladder cancer Other Mental health disorder Substance use disorder Social History Housing: House Alcohol intake: current Alcohol intake frequency: a few times a month Patient Tobacco Use Status: Former Tobacco user Tobacco use type: Cigarette e-Cigarette/Vaping Use: Never Used Current occupational status: employed 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 Current occupational exposures/hazards: No Sexual orientation: Lesbian/[place]/Homosexual Gender identity: Female Cognitive needs: No Hearing needs: No Vision needs: No Female Reproductive History Menstrual Age of Menarche: 10 Duration of menses: 3-5 days Date of last menstrual period: 01/11/25 control method: none Review of Systems Const Reports no additional complaints Eyes Reports no additional complaints ENT Reports no additional complaints Card Reports no additional complaints Resp Reports no additional complaints GI Reports no additional complaints Reports as per HPI Skin/Breast Reports system reviewed and no additional complaints, except as documented Physical Exam Vital Signs: Last Vital Signs BP 120/72 01/25/25 13:05 BMI result Body Mass Index 30.5 Const General: cooperative, healthy appearing and no acute distress Orientation/consciousness: patient oriented x3 HEENT Head: Yes normal to inspection and Yes normocephalic Ears: external ears normal General nose exam: Normal external nose present Neck Neck: Yes normal visual inspection Chest Breast/axilla inspection: normal inspection of the breasts, normal inspection of the axillae and Other (No skin changes, peau d orange, or nipple discharge noted) Breast/axilla palpation: normal palpation of the breasts, normal palpation of the axillae and no axillary lymphadenopathy Resp Effort & Inspection: normal respiratory effort and able to speak in complete sentences GI Inspection: No distended Palpation (GI): Soft to palpation, nontender and no masses Percussion: Yes normal to percussion Rectal Exam - Female: External hemorrhoid(s) present ([present/absent]) External Female Exam: normal external appearance and normal appearance of the urethra Speculum Exam - Vagina: normal appearance of the vagina and normal vaginal discharge Speculum Exam - Cervix: normal appearance of the cervix and normal palpation (neg CMT) Bimanual exam- vagina & uterus: normal bimanual exam, normal palpation (neg CMT), uterine mobility normal and non-tender Bimanual Exam- Adnexa, other: no masses and No adnexal tenderness Skin General skin exam: no rashes or lesions noted Neuro General: patient oriented x3 and moves all extremities Extrem General: Yes full ROM Psych Speech and movement: Normal speech and movement present Affect: normal affect Attitude: cooperative Thought process: Normal thought process present Assessment & Plan Assessment & Plan (1) Well woman exam with routine gynecological exam: Code(s): Z01.419 - Encounter for gynecological examination (general) (routine) without abnormal findings Category: Medical (2) Screening breast examination: Code(s): Z12.39 - Encounter for other screening for malignant neoplasm of breast Plan During the visit, the following areas of concern were addressed: Monitoring of the menstrual cycle Regular exercise Healthy lifestyle Domestic violence Menopausal/maya-menopausal signs and symptoms, including nonprescription strategies for management Health Maintenance and Screening -Reviewed ASCCP guidelines for Paps and yearly (bi-yearly ) pelvic exam. -Reviewed and encouraged diet and exercise for cardiovascular and bone health -Reviewed breast self-awareness. Importance of yearly mammogram after age 40 (earlier if first-degree relative with breast cancer at a younger age ) Discuss use of 3 times per week weight-bearing exercise, vitamin D3 and servings of dietary calcium daily for bone health. -continue to follow with PCP for general medical care, immunizations. Screening strategies for colon cancer after age 50. Discussion of Kegel exercises for urinary incontinence Family and personal history of cancer reviewed. she has completed with negative BRCA results The patient has BMI: 30 The patient is overweight. Approaches towards weight loss are discussed including burning more calories than one takes in by frequent, small meals, portion control, avoiding eating before bedtime, regular exercise with an emphasis on duration rather than intensity, strength training exercise, referral to crowning inspector or to weight loss management center upon patient request. Enc annual Dermatology for routine skin eval . RTO one year or sooner elsi Mcfadden CNM Note about provider documentation : If you or the patient named in this chart and are reviewing your medical notes, please note that medical documentation is often written with abbreviations and medical terminology, and directed for other providers who may be involved in your care as well. Documentation is critical to record what has happened, what tests were ordered, and so they are interpreted with the resulting diagnoses. These nodes have been made available for patient review but not specifically written for the patient. Important health information is always given to my patients in clinical instructions. Please review your after visit summary and our contact our clinical staff if you have any questions. Coding Level of Care Code Est Pt Prev Care 40-64y(24033) Diagnoses Well woman exam with routine gynecological exam Z01.419 Screening breast examination Z12.39
[2025-01-25 13:05] VITALS: BP 120/72; BMI 30.5
== END 2025-01-25 13:52 | disposition home or self-care (01) ==
LOC: HO.HWSM 12:52
PROVIDERS: PCP Internal Medicine; Visit Provider Advanced Practice Midwife
DX: Z01.419 Encounter for gynecological examination (general) (routine) without abnormal findings (principal); Z12.39 Encounter for other screening for malignant neoplasm of breast
CPT/HCPCS: 99396; 99459